=== PATIENT | male | born 1940 | race Caucasian/White ===

== ENCOUNTER 2018-03-04 11:30 | Outpatient (RCR) | payer MEDICARE, OTHER, SELFPAY ==
[2018-02-25 10:48] VITALS: BP 150/80; PULSE 96; RESP 18; TEMP 36.1
--- NOTE | 2018-02-25 11:33 | WC ---
+4 pitting pedal edema , #1 wound foul smelling wound noted
--- NOTE | 2018-02-25 13:03 | RAD_ITS ---
STUDY: X-RAY - LEFT KNEE REASON FOR EXAM: Male, 77 years old. Left lower leg ulcer. Ostial myelitis? TECHNIQUE: 4 view(s) of the knee. COMPARISON: Tibia and fibula same date. FINDINGS: Calcification of the menisci bilaterally may reflect underlying CPPD/pseudogout. There are no significant degenerative features of the medial or lateral or patellofemoral compartment otherwise. There is generalized osteopenia. No apparent knee joint effusion. There is superficial soft tissue edema in the subcutaneous fat surrounding the knee, in the distal thigh and in the proximal lower leg. RAD/Knee 4 or More Views IMPRESSION: Prominent superficial soft tissue edema. No significant osteoarthritic degenerative features of the bones. 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 Electronically Signed: Gregorio Barrera, at 18:52 EDT Tel , Service support ,
--- NOTE | 2018-02-25 13:04 | RAD_ITS ---
STUDY: X-RAY - LEFT TIBIA AND FIBULA REASON FOR EXAM: Male, 77 years old. Left lower leg ulcer. Ostial myelitis? TECHNIQUE: 4 view(s) of the tibia and fibula were obtained. COMPARISON: Knee and ankle same date FINDINGS: Osteopenia. No destructive features of the tibia or fibula. Diffuse superficial soft tissue swelling of the lower leg. No deep soft tissue gas. RAD/Tibia & Fibula 2 Views IMPRESSION: Diffuse superficial soft tissue edema. No acute underlying osseous abnormality. Electronically Signed: Gregorio Barrera, at 18:53 EDT Tel , Service support ,
--- NOTE | 2018-02-25 13:05 | RAD_ITS ---
STUDY: X-RAY - LEFT ANKLE REASON FOR EXAM: Male, 77 years old. Left lower leg ulcer. Osteomyelitis? TECHNIQUE: 3 view(s) of the ankle. COMPARISON: Tibia and fibula same date. Knee same date. FINDINGS: Generalized osteopenia without destructive features of the bone. No fracture or dislocation. No significant arthritic changes of the ankle or proximal foot. Small plantar calcaneal spur. Severe soft tissue swelling of the lower leg, around the ankle and proximal foot. No deep soft tissue gas. RAD/Ankle min 3 Views IMPRESSION: Severe soft tissue swelling. No acute underlying osseous abnormality. Electronically Signed: Gregorio Barrera, at 18:51 EDT Tel , Service support ,
[2018-02-25 13:24] LABS: Absolute Lymphocyte Count 2.59 X10^3/ul (0.83-4.51); Absolute Neutrophil Count 4.6 X10^3/uL (2.0-7.7); Basophil# 0.05 X10^3/uL; Basophil% 0.6 % (0-1); Eosinophil# 0.15 X10^3/uL; Eosinophils% 1.8 % (0-5); Hematocrit 47.4 % (40-54); Lymphocyte # 2.59 X10^3/ul (4.0); Lymphocyte % 31.9 % (19-41); Mean Corp Hgb Conc 31.6 g/gl (32-36); Mean Corpuscular Hgb 29.8 pg (27.0-32.0); Mean Corpuscular Volume 94.2 fL (80-94); Monocyte# 0.72 X10^3/uL; Monocyte% 8.9 % (0-10); Neutrophil % 56.6 % (47-70); POSITIVE COUNT NO; POSITIVE DIFFERENTIAL NO; POSITIVE MORPHOLOGY NO; Platelet Count 134 K/mm3 (150-450); RBC Distribution Width CV 16.2 % (11.6-14.6); RBC Distribution Width SD 55.8 fl (35.1-43.9); Red Blood Count 5.03 M/mm3 (4.6-6.2); White Blood Count 8.1 K/mm3 (4.4-11.0)
[2018-02-25 13:58] LABS: ALB/GLOB Ratio 0.7 RATIO (0.9-2.4); AST(SGOT) 29 U/L (15-37); Alanine Aminotransfer ALT/SGPT 21 U/L (16-61); Albumin, Serum 2.9 g/dL (3.2-5.0); Alkaline Phosphatase 131 U/L (45-117); Anion Gap 3 (5-15); BUN 17 mg/dL (7-18); Calcium,Total 8.7 mg/dL (8.5-10.1); Chloride 106 mmol/L (98-107); Creatinine, Serum 1.06 mg/dL (0.70-1.30); EST Glomerular Filtration Rate 72 mL/min (>60); Est Glom Filt Rate - Afr Amer 87 mL/min (>60); Glucose 100 mg/dL (74-106); Potassium 4.4 mmol/L (3.5-5.1); Prealbumin 16.3 mg/dL (20.0-40.0); Protein, Total 6.9 g/dL (6.4-8.2); Sodium Level 141 mmol/L (136-145)
--- NOTE | 2018-02-25 17:12 | PCM.WC.HP ---
(1) Ulcer of left lower extremity with fat layer exposed Status: Acute Current Visit: Yes Code(s): L97.922 - Non-pressure chronic ulcer of unspecified part of left lower leg with fat layer exposed (2) Ulcer of right lower extremity with fat layer exposed Status: Acute Current Visit: Yes Code(s): L97.912 - Non-pressure chronic ulcer of unspecified part of right lower leg with fat layer exposed (3) Chronic venous insufficiency Status: Acute Current Visit: Yes Code(s): I87.2 - Venous insufficiency (chronic) (peripheral) (4) Non-healing ulcer Status: Acute Current Visit: Yes Code(s): L98.499 - Non-pressure chronic ulcer of skin of other sites with unspecified severity History of Present Illness Date of Service: 02/25/18 Chief Complaint: Bilateral lower extremity ulcers. History of Wound: Mr. Diaz presents here with an at least 8 month history of bilateral lower extremity ulcers. He is here with his son and they are unsure of the exact onset but believe it must have been presnt for at least 8 months.They are also not sure of the precipitating factor. He lives with his who is largely incapapcitated and is helped by Home health. He has not had any significant care to his ulcers. He denies any known history of DM or PAD. He follows up with his PCP by whom he was referred here. He feels wells otherwise and denies chills, fever, significant discharge from the wound, nausea, vomiting or any change inhis bowel habit. Past Medical History Allergies/Adverse Reactions: Allergies No Known Allergies Allergy (Verified 02/25/18 10:09) Home Medications: Ambulatory Orders Medication Instructions Recorded Furosemide [Lasix] 40 mg PO DAILY 02/25/18 Gluc/Mino-MSM#1/C/Slick/Jose/Bor 1 each PO DAILY 02/25/18 [Glucosamine-Chondroitin Caplet] Lisinopril 20 mg PO DAILY 02/25/18 Multivitamin [Multiple Vitamins] 1 each PO DAILY 02/25/18 Nebivolol HCl [Bystolic] 10 mg PO DAILY 02/25/18 Smoking Status: Light Smoker (<10/day) Review of Systems Constitutional: Denies: Anorexia, Chills, Fever Eyes: Denies: Pain HEENT: Denies: Difficulty Swallowing, Head Aches Cardiovascular: Denies: Chest Pain, Chest Tightness Respiratory: Denies: Cough, Hemoptysis Gastrointestinal: Denies: Abdominal Pain, Hematemesis, Vomiting Skin: Denies: Jaundice Psychiatric: Denies: Anxiety - Physical Exam Vital Signs Temp Pulse Resp BP 97 F L 96 18 150/80 H 02/25/18 10:48 02/25/18 10:48 02/25/18 10:48 02/25/18 10:48 General: Alert, Oriented x3, Cooperative, No apparent distress HEENT: Atraumatic, Normocephalic Oral: Moist Mucosa Neck: Supple Lungs: Normal air movement Cardiovascular: Regular rate, Regular Rhythm, Normal S1, Normal S2 Abdomen: Non Tender Extremities: No cyanosis, Edema Skin: Ulcer/ Wound Wound Measurements and Assessment WC - Nurse 1 - General Ulcer Measurement Start: 02/25/18 09:22 Freq: Status: Active Protocol: Activity Type Activity Date Activity User E-Sign Co-Sign Detail Recorded Client Recorded Date Recorded By Document 02/25/18 10:48 [id number] 02/25/18 11:02 RB 02/25/18 10:48 Wound Center Nurse 1 [Ulcer Assessment] #3 RIGHT NUGENT -Combined with other wound No -Current Size (cm) - Length 4.4 -Current Size (cm) - Width 0.9 -Current Size (cm) - Depth 0.1 -Total Square Cm 3.96 -Photo Taken Yes -Tunneling No -Undermining/Tunneling No -Circular Undermining No -Classification - Thickness Full Thickness without Exposed Support Structure -Exudate Amt Small (1-33%) -Exudate Type Serosanguineous -Wound Margin Distinct, Outline Attached -Granulation Amt Medium (34-66%) -Granulation Quality [place] -Slough/Fibrin Yes -Necrosis Amt Medium (34-66%) -Necrotic Tissue Type Adherent Slough -Structure Exposed N/A -Texture (Lydia-wound Skin Appearance) Assessed -Moisture (Lydia-wound Skin Appearance Assessed ) -Color (Lydia-wound Skin Appearance) Assessed -Temperature (Lydia-wound Skin No Abnormality Appearance) (Pt Warm) -Tenderness on Palpation (Lydia-wound No Skin Appearance) -Ulcer Cleansing Wound Cleanser -Foul Odor after Cleansing No -Anesthetic Used 5% Lidocaine Gel #2 POSTERIOR RLE- CALF -Combined with other wound No -Current Size (cm) - Length 4 -Current Size (cm) - Width 2.6 -Current Size (cm) - Depth 0.1 -Total Square Cm 10.4 -Photo Taken Yes -Tunneling No -Undermining/Tunneling No -Circular Undermining No -Classification - Thickness Full Thickness without Exposed Support Structure -Exudate Amt Medium (34-66%) -Exudate Type Serosanguineous -Wound Margin Distinct, Outline Attached -Granulation Amt Medium (34-66%) -Granulation Quality [place] -Slough/Fibrin Yes -Necrosis Amt Medium (34-66%) -Necrotic Tissue Type Adherent Slough -Structure Exposed N/A -Texture (Lydia-wound Skin Appearance) Assessed -Moisture (Lydia-wound Skin Appearance Maceration ) -Color (Lydia-wound Skin Appearance) Assessed -Temperature (Lydia-wound Skin No Abnormality Appearance) (Pt Warm) -Tenderness on Palpation (Lydia-wound No Skin Appearance) -Ulcer Cleansing Wound Cleanser -Foul Odor after Cleansing No -Anesthetic Used 5% Lidocaine Gel #1 POSTERIOR LLE -Combined with other wound No -Current Size (cm) - Length 8.1 -Current Size (cm) - Width 3.7 -Current Size (cm) - Depth 0.2 -Total Square Cm 29.97 -Photo Taken Yes -Tunneling No -Undermining/Tunneling No -Circular Undermining No -Classification - Thickness Full Thickness without Exposed Support Structure -Exudate Amt Large (67-100%) -Exudate Type Serosanguineous -Wound Margin Distinct, Outline Attached -Granulation Amt Small (1-33%) -Granulation Quality [place] -Slough/Fibrin Yes -Necrosis Amt Large (67-100%) -Necrotic Tissue Type Adherent Slough -Structure Exposed N/A -Texture (Lydia-wound Skin Appearance) Assessed -Moisture (Lydia-wound Skin Appearance Assessed ) Maceration -Color (Lydia-wound Skin Appearance) Assessed -Temperature (Lydia-wound Skin No Abnormality Appearance) (Pt Warm) -Tenderness on Palpation (Lydia-wound No Skin Appearance) -Ulcer Cleansing Wound Cleanser -Foul Odor after Cleansing No -Anesthetic Used 5% Lidocaine Gel [Edema Assessment] -Lower Limb Edema Present Yes -Right Calf (cm) 42 -Right Ankle (cm) 26.5 -Left Calf (cm) 43.4 -Left Ankle (cm) 31.5 WC - Nurse 2 - General Ulcer CM Notes Start: 02/25/18 09:22 Freq: Status: Active Protocol: Activity Type Activity Date Activity User E-Sign Co-Sign Detail Recorded Client Recorded Date Recorded By Document 02/25/18 11:33 DV [id number] 02/25/18 11:49 DV 02/25/18 11:33 Wound Center Nurse 2 [Procedure/Treatment] #3 RIGHT NUGENT -Time 11:41 -Correct Patient Yes -Correct Side, Site, Position Yes -Correct Procedure Yes -Procedure Performed Yes -Type of Procedure Debridement -Clinical Debridement Subcutaneous -Post Debridement Size (cm) - Length 4.5 -Post Debridement Size (cm) - Width 1.2 -Post Debridement Size (cm) - Depth 0.3 -Total Square Cm 5.40 -Wound/Ulcer Outcome Not Healed -Ulcer Cleansing Rinsed/ Irrigated with Saline -Foul Odor after Cleansing No -Bioengineered Tissue No -Bleeding Controlled with NA -Treatment Response Procedure Tolerated Well #2 POSTERIOR RLE- CALF -Time 11:43 -Correct Patient Yes -Correct Side, Site, Position Yes -Correct Procedure Yes -Procedure Performed Yes -Type of Procedure Debridement -Clinical Debridement Subcutaneous -Post Debridement Size (cm) - Length 4.5 -Post Debridement Size (cm) - Width 3.0 -Post Debridement Size (cm) - Depth 0.2 -Total Square Cm 13.50 -Wound/Ulcer Outcome Not Healed -Ulcer Cleansing Rinsed/ Irrigated with Saline -Foul Odor after Cleansing No -Bioengineered Tissue No -Bleeding Controlled with Pressure -Treatment Response Procedure Tolerated Well #1 POSTERIOR LLE -Time 11:44 -Correct Patient Yes -Correct Side, Site, Position Yes -Correct Procedure Yes -Procedure Performed Yes -Type of Procedure Debridement -Clinical Debridement Subcutaneous -Post Debridement Size (cm) - Length 8.8 -Post Debridement Size (cm) - Width 3.3 -Post Debridement Size (cm) - Depth 0.4 -Total Square Cm 29.04 -Wound/Ulcer Outcome Not Healed -Ulcer Cleansing Rinsed/ Irrigated with Saline -Foul Odor after Cleansing No -Bioengineered Tissue No -Bleeding Controlled with Pressure -Treatment Response Procedure Tolerated Well [See Physician Procedure note for Specifics] Pain Scale: 0-10 Numeric [Pain] -Is Patient Pain Free? Yes Musculoskeletal: No Muscle Wasting Neurological: Neuro grossly intact Psych/Mental Status: Normal Affect Debridement Note Post-Debridement Measurements/Treatment WC - Nurse 2 - General Ulcer CM Notes Start: 02/25/18 09:22 Freq: Status: Active Protocol: Activity Type Activity Date Activity User E-Sign Co-Sign Detail Recorded Client Recorded Date Recorded By Document 02/25/18 11:33 DV [id number] 02/25/18 11:49 DV 02/25/18 11:33 Wound Center Nurse 2 #3 RIGHT NUGENT -Time 11:41 -Correct Patient Yes -Correct Side, Site, Position Yes -Correct Procedure Yes -Procedure Performed Yes -Type of Procedure Debridement -Clinical Debridement Subcutaneous -Post Debridement Size (cm) - Length 4.5 -Post Debridement Size (cm) - Width 1.2 -Post Debridement Size (cm) - Depth 0.3 -Total Square Cm 5.40 -Wound/Ulcer Outcome Not Healed -Ulcer Cleansing Rinsed/ Irrigated with Saline -Foul Odor after Cleansing No -Bioengineered Tissue No -Bleeding Controlled with NA -Treatment Response Procedure Tolerated Well #2 POSTERIOR RLE- CALF -Time 11:43 -Correct Patient Yes -Correct Side, Site, Position Yes -Correct Procedure Yes -Procedure Performed Yes -Type of Procedure Debridement -Clinical Debridement Subcutaneous -Post Debridement Size (cm) - Length 4.5 -Post Debridement Size (cm) - Width 3.0 -Post Debridement Size (cm) - Depth 0.2 -Total Square Cm 13.50 -Wound/Ulcer Outcome Not Healed -Ulcer Cleansing Rinsed/ Irrigated with Saline -Foul Odor after Cleansing No -Bioengineered Tissue No -Bleeding Controlled with Pressure -Treatment Response Procedure Tolerated Well #1 POSTERIOR LLE -Time 11:44 -Correct Patient Yes -Correct Side, Site, Position Yes -Correct Procedure Yes -Procedure Performed Yes -Type of Procedure Debridement -Clinical Debridement Subcutaneous -Post Debridement Size (cm) - Length 8.8 -Post Debridement Size (cm) - Width 3.3 -Post Debridement Size (cm) - Depth 0.4 -Total Square Cm 29.04 -Wound/Ulcer Outcome Not Healed -Ulcer Cleansing Rinsed/ Irrigated with Saline -Foul Odor after Cleansing No -Bioengineered Tissue No -Bleeding Controlled with Pressure -Treatment Response Procedure Tolerated Well Pain Scale: 0-10 Numeric Is Patient Pain Free? Yes Wound debrided: Left Lower extremity ( Posterior ) Wound Grade/Stage: Stage III Type of Debridement: Excisional debridement Anesthesia Used: 5% Lidocaine Gel Depth: Down to and including healthy tissue, in the subcutaneous layer Percentage of wound debrided: 100 Instrument Used: 5mm curette Tissue Removed: SLough, Fibrin and Devitalized tissue Severity: Fat Layer Exposed Amount of bleeding with debridement: Mild Bleeding Controlled with: Pressure Patient tolerated procedure well - Additional Wound Wound debrided: Right lower extremity ( Posterior ) Cluster Wound Grade/Stage: Stage II Type of Debridement: Excisional debridement Anesthesia Used: 5% Lidocaine Gel Depth: Down to and including healthy tissue, in the subcutaneous layer Percentage of wound debrided: 100 Instrument Used: 5mm curette Tissue Removed: Slough and devitalized tissue Severity: Fat Layer Exposed Amount of bleeding with debridement: Mild Bleeding Controlled with: Pressure Patient tolerated procedure: Patient tolerated procedure well - Additional Wound Wound debrided: Right nugent ulcer Wound Grade/Stage: Stage II Type of Debridement: Excisional debridement Anesthesia Used: 5% Lidocaine Gel Depth: Down to and including healthy tissue, in the subcutaneous layer Percentage of wound debrided: 100 Instrument Used: 5mm curette Tissue Removed: Slough and devitalized tissue Severity: Fat Layer Exposed Amount of bleeding with debridement: Mild Bleeding Controlled with: Pressure Patient tolerated procedure: Patient tolerated procedure well Assessment/Plan Active Problems Ulcer of left lower extremity with fat layer exposed (Acute) Ulcer of right lower extremity with fat layer exposed (Acute) Chronic venous insufficiency (Acute) Non-healing ulcer (Acute) Assessment: Bilateral lower extremity ulcers with fat layer exposed. Chronic venous insufficiency. Chronic bilateral non healing wound. Congestive heart failure. Debility. Plan: Mr. Diaz presents here with bilateral chronic non healing wound. Largest ulcer on the posterior left lower extremity with very significant slough burden. No surrounding cellulitis appreciated. Debridement done as documented above. Procedure was well tolerated. Xrays, cultures and blood work ordererd including CBC, CMP, Prealbumin and A1C. Apply santyl daily to moistened beds of to left lower extremity ulcer and espinoza to right lower extremity ulcers. Single layer tubi it integration architect for edema management. Elevate lower extremity when sitted and in bed. Due to debility and lack of good support system, patient will benefit from Home health. Increased protein intake and protein supplements recommeneded. Follow up in 1 week. This note was generated with [employer] software. It may contain incorrect words, spelling, and punctuation that were not noted in checking the note before signing.
--- NOTE | 2018-02-25 17:19 | HP.PCM_ITS ---
(1) Ulcer of left lower extremity with fat layer exposed Status: Acute Current Visit: Yes Code(s): L97.922 - Non-pressure chronic ulcer of unspecified part of left lower leg with fat layer exposed (2) Ulcer of right lower extremity with fat layer exposed Status: Acute Current Visit: Yes Code(s): L97.912 - Non-pressure chronic ulcer of unspecified part of right lower leg with fat layer exposed (3) Chronic venous insufficiency Status: Acute Current Visit: Yes Code(s): I87.2 - Venous insufficiency ( chronic) (peripheral) (4) Non-healing ulcer Status: Acute Current Visit: Yes Code(s): L98.499 - Non-pressure chronic ulcer of skin of other sites with unspecified severity History of Present Illness Date of Service: 02/25/18 Chief Complaint: Bilateral lower extremity ulcers. History of Wound: Mr. Diaz presents here with an at least 8 month history of bilateral lower extremity ulcers. He is here with his son and they are unsure of the exact onset but believe it must have been presnt for at least 8 months.They are also not sure of the precipitating factor. He lives with his who is largely incapapcitated and is helped by Home health. He has not had any significant care to his ulcers. He denies any known history of DM or PAD. He follows up with his PCP by whom he was referred here. He feels wells otherwise and denies chills, fever, significant discharge from the wound, nausea , vomiting or any change inhis bowel habit. Past Medical History Allergies/Adverse Reactions: Allergies No Known Allergies Allergy (Verified 02/25/18 10:09) Home Medications: Ambulatory Orders Medication Instructions Recorded Furosemide [Lasix] 40 mg PO DAILY 02/25/18 Gluc/Mino-MSM#1/C/Slick/Jose/Bor 1 each PO DAILY 02/25/18 [Glucosamine-Chondroitin Caplet] Lisinopril 20 mg PO DAILY 02/25/18 Multivitamin [Multiple Vitamins] 1 each PO DAILY 02/25/18 Nebivolol HCl [Bystolic] 10 mg PO DAILY 02/25/18 Smoking Status: Light Smoker (<10/day) Review of Systems Constitutional: Denies: Anorexia, Chills, Fever Eyes: Denies: Pain HEENT: Denies: Difficulty Swallowing, Head Aches Cardiovascular: Denies: Chest Pain, Chest Tightness Respiratory: Denies: Cough, Hemoptysis Gastrointestinal: Denies: Abdominal Pain, Hematemesis, Vomiting Skin: Denies: Jaundice Psychiatric: Denies: Anxiety - Physical Exam Vital Signs Temp Pulse Resp BP 97 F L 96 18 150/80 H 02/25/18 10:48 02/25/18 10:48 02/25/18 10:48 02/25/18 10:48 General: Alert, Oriented x3, Cooperative, No apparent distress HEENT: Atraumatic, Normocephalic Oral: Moist Mucosa Neck: Supple Lungs: Normal air movement Cardiovascular: Regular rate, Regular Rhythm, Normal S1, Normal S2 Abdomen: Non Tender Extremities: No cyanosis, Edema Skin: Ulcer/ Wound Wound Measurements and Assessment WC - Nurse 1 - General Ulcer Measurement Start: 02/25/18 09:22 Freq: Status: Active Protocol: Activity Type Activity Date Activity User E-Sign Co-Sign Detail Recorded Client Recorded Date Recorded By Document 02/25/18 10:48 [id number] 02/25/18 11:02 RB 02/25/18 10:48 Wound Center Nurse 1 [Ulcer Assessment] #3 RIGHT NUGENT -Combined with other wound No -Current Size (cm) - Length 4.4 -Current Size (cm) - Width 0.9 -Current Size (cm) - Depth 0.1 -Total Square Cm 3.96 -Photo Taken Yes -Tunneling No -Undermining/Tunneling No -Circular Undermining No -Classification - Thickness Full Thickness without Exposed Support Structure -Exudate Amt Small (1-33%) -Exudate Type Serosanguineous -Wound Margin Distinct, Outline Attached -Granulation Amt Medium (34-66%) -Granulation Quality [place] -Slough/Fibrin Yes -Necrosis Amt Medium (34-66%) -Necrotic Tissue Type Adherent Slough -Structure Exposed N/A -Texture (Lydia-wound Skin Appearance) Assessed -Moisture (Lydia-wound Skin Appearance Assessed ) -Color (Lydia-wound Skin Appearance) Assessed -Temperature (Lydia-wound Skin No Abnormality Appearance) (Pt Warm) -Tenderness on Palpation (Lydia-wound No Skin Appearance) -Ulcer Cleansing Wound Cleanser -Foul Odor after Cleansing No -Anesthetic Used 5% Lidocaine Gel #2 POSTERIOR RLE- CALF -Combined with other wound No -Current Size (cm) - Length 4 -Current Size (cm) - Width 2.6 -Current Size (cm) - Depth 0.1 -Total Square Cm 10.4 -Photo Taken Yes -Tunneling No -Undermining/Tunneling No -Circular Undermining No -Classification - Thickness Full Thickness without Exposed Support Structure -Exudate Amt Medium (34-66%) -Exudate Type Serosanguineous -Wound Margin Distinct, Outline Attached -Granulation Amt Medium (34-66%) -Granulation Quality [place] -Slough/Fibrin Yes -Necrosis Amt Medium (34-66%) -Necrotic Tissue Type Adherent Slough -Structure Exposed N/A -Texture (Lydia-wound Skin Appearance) Assessed -Moisture (Lydia-wound Skin Appearance Maceration ) -Color (Lydia-wound Skin Appearance) Assessed -Temperature (Lydia-wound Skin No Abnormality Appearance) (Pt Warm) -Tenderness on Palpation (Lydia-wound No Skin Appearance) -Ulcer Cleansing Wound Cleanser -Foul Odor after Cleansing No -Anesthetic Used 5% Lidocaine Gel #1 POSTERIOR LLE -Combined with other wound No -Current Size (cm) - Length 8.1 -Current Size (cm) - Width 3.7 -Current Size (cm) - Depth 0.2 -Total Square Cm 29.97 -Photo Taken Yes -Tunneling No -Undermining/Tunneling No -Circular Undermining No -Classification - Thickness Full Thickness without Exposed Support Structure -Exudate Amt Large (67-100%) -Exudate Type Serosanguineous -Wound Margin Distinct, Outline Attached -Granulation Amt Small (1-33%) -Granulation Quality [place] -Slough/Fibrin Yes -Necrosis Amt Large (67-100%) -Necrotic Tissue Type Adherent Slough -Structure Exposed N/A -Texture (Lydia-wound Skin Appearance) Assessed -Moisture (Lydia-wound Skin Appearance Assessed ) Maceration -Color (Lydia-wound Skin Appearance) Assessed -Temperature (Lydia-wound Skin No Abnormality Appearance) (Pt Warm) -Tenderness on Palpation (Lydia-wound No Skin Appearance) -Ulcer Cleansing Wound Cleanser -Foul Odor after Cleansing No -Anesthetic Used 5% Lidocaine Gel [Edema Assessment] -Lower Limb Edema Present Yes -Right Calf (cm) 42 -Right Ankle (cm) 26.5 -Left Calf (cm) 43.4 -Left Ankle (cm) 31.5 WC - Nurse 2 - General Ulcer CM Notes Start: 02/25/18 09:22 Freq: Status: Active Protocol: Activity Type Activity Date Activity User E-Sign Co-Sign Detail Recorded Client Recorded Date Recorded By Document 02/25/18 11:33 DV [id number] 02/25/18 11:49 DV 02/25/18 11:33 Wound Center Nurse 2 [Procedure/Treatment] #3 RIGHT NUGENT -Time 11:41 -Correct Patient Yes -Correct Side, Site, Position Yes -Correct Procedure Yes -Procedure Performed Yes -Type of Procedure Debridement -Clinical Debridement Subcutaneous -Post Debridement Size (cm) - Length 4.5 -Post Debridement Size (cm) - Width 1.2 -Post Debridement Size (cm) - Depth 0.3 -Total Square Cm 5.40 -Wound/Ulcer Outcome Not Healed -Ulcer Cleansing Rinsed/ Irrigated with Saline -Foul Odor after Cleansing No -Bioengineered Tissue No -Bleeding Controlled with NA -Treatment Response Procedure Tolerated Well #2 POSTERIOR RLE- CALF -Time 11:43 -Correct Patient Yes -Correct Side, Site, Position Yes -Correct Procedure Yes -Procedure Performed Yes -Type of Procedure Debridement -Clinical Debridement Subcutaneous -Post Debridement Size (cm) - Length 4.5 -Post Debridement Size (cm) - Width 3.0 -Post Debridement Size (cm) - Depth 0.2 -Total Square Cm 13.50 -Wound/Ulcer Outcome Not Healed -Ulcer Cleansing Rinsed/ Irrigated with Saline -Foul Odor after Cleansing No -Bioengineered Tissue No -Bleeding Controlled with Pressure -Treatment Response Procedure Tolerated Well #1 POSTERIOR LLE -Time 11:44 -Correct Patient Yes -Correct Side, Site, Position Yes -Correct Procedure Yes -Procedure Performed Yes -Type of Procedure Debridement -Clinical Debridement Subcutaneous -Post Debridement Size (cm) - Length 8.8 -Post Debridement Size (cm) - Width 3.3 -Post Debridement Size (cm) - Depth 0.4 -Total Square Cm 29.04 -Wound/Ulcer Outcome Not Healed -Ulcer Cleansing Rinsed/ Irrigated with Saline -Foul Odor after Cleansing No -Bioengineered Tissue No -Bleeding Controlled with Pressure -Treatment Response Procedure Tolerated Well [See Physician Procedure note for Specifics] Pain Scale: 0-10 Numeric [Pain] -Is Patient Pain Free? Yes Musculoskeletal: No Muscle Wasting Neurological: Neuro grossly intact Psych/Mental Status: Normal Affect Debridement Note Post-Debridement Measurements/Treatment WC - Nurse 2 - General Ulcer CM Notes Start: 02/25/18 09:22 Freq: Status: Active Protocol: Activity Type Activity Date Activity User E-Sign Co-Sign Detail Recorded Client Recorded Date Recorded By Document 02/25/18 11:33 DV [id number] 02/25/18 11:49 DV 02/25/18 11:33 Wound Center Nurse 2 #3 RIGHT NUGENT -Time 11:41 -Correct Patient Yes -Correct Side, Site, Position Yes -Correct Procedure Yes -Procedure Performed Yes -Type of Procedure Debridement -Clinical Debridement Subcutaneous -Post Debridement Size (cm) - Length 4.5 -Post Debridement Size (cm) - Width 1.2 -Post Debridement Size (cm) - Depth 0.3 -Total Square Cm 5.40 -Wound/Ulcer Outcome Not Healed -Ulcer Cleansing Rinsed/ Irrigated with Saline -Foul Odor after Cleansing No -Bioengineered Tissue No -Bleeding Controlled with NA -Treatment Response Procedure Tolerated Well #2 POSTERIOR RLE- CALF -Time 11:43 -Correct Patient Yes -Correct Side, Site, Position Yes -Correct Procedure Yes -Procedure Performed Yes -Type of Procedure Debridement -Clinical Debridement Subcutaneous -Post Debridement Size (cm) - Length 4.5 -Post Debridement Size (cm) - Width 3.0 -Post Debridement Size (cm) - Depth 0.2 -Total Square Cm 13.50 -Wound/Ulcer Outcome Not Healed -Ulcer Cleansing Rinsed/ Irrigated with Saline -Foul Odor after Cleansing No -Bioengineered Tissue No -Bleeding Controlled with Pressure -Treatment Response Procedure Tolerated Well #1 POSTERIOR LLE -Time 11:44 -Correct Patient Yes -Correct Side, Site, Position Yes -Correct Procedure Yes -Procedure Performed Yes -Type of Procedure Debridement -Clinical Debridement Subcutaneous -Post Debridement Size (cm) - Length 8.8 -Post Debridement Size (cm) - Width 3.3 -Post Debridement Size (cm) - Depth 0.4 -Total Square Cm 29.04 -Wound/Ulcer Outcome Not Healed -Ulcer Cleansing Rinsed/ Irrigated with Saline -Foul Odor after Cleansing No -Bioengineered Tissue No -Bleeding Controlled with Pressure -Treatment Response Procedure Tolerated Well Pain Scale: 0-10 Numeric Is Patient Pain Free? Yes Wound debrided: Left Lower extremity ( Posterior ) Wound Grade/Stage: Stage III Type of Debridement: Excisional debridement Anesthesia Used: 5% Lidocaine Gel Depth: Down to and including healthy tissue, in the subcutaneous layer Percentage of wound debrided: 100 Instrument Used: 5mm curette Tissue Removed: SLough, Fibrin and Devitalized tissue Severity: Fat Layer Exposed Amount of bleeding with debridement: Mild Bleeding Controlled with: Pressure Patient tolerated procedure well - Additional Wound Wound debrided: Right lower extremity ( Posterior ) Cluster Wound Grade/Stage: Stage II Type of Debridement: Excisional debridement Anesthesia Used: 5% Lidocaine Gel Depth: Down to and including healthy tissue, in the subcutaneous layer Percentage of wound debrided: 100 Instrument Used: 5mm curette Tissue Removed: Slough and devitalized tissue Severity: Fat Layer Exposed Amount of bleeding with debridement: Mild Bleeding Controlled with: Pressure Patient tolerated procedure: Patient tolerated procedure well - Additional Wound Wound debrided: Right nugent ulcer Wound Grade/Stage: Stage II Type of Debridement: Excisional debridement Anesthesia Used: 5% Lidocaine Gel Depth: Down to and including healthy tissue, in the subcutaneous layer Percentage of wound debrided: 100 Instrument Used: 5mm curette Tissue Removed: Slough and devitalized tissue Severity: Fat Layer Exposed Amount of bleeding with debridement: Mild Bleeding Controlled with: Pressure Patient tolerated procedure: Patient tolerated procedure well Assessment/Plan Active Problems Ulcer of left lower extremity with fat layer exposed (Acute) Ulcer of right lower extremity with fat layer exposed (Acute) Chronic venous insufficiency (Acute) Non-healing ulcer (Acute) Assessment: Bilateral lower extremity ulcers with fat layer exposed. Chronic venous insufficiency. Chronic bilateral non healing wound. Congestive heart failure. Debility. Plan: Mr. Diaz presents here with bilateral chronic non healing wound. Largest ulcer on the posterior left lower extremity with very significant slough burden. No surrounding cellulitis appreciated. Debridement done as documented above. Procedure was well tolerated. Xrays, cultures and blood work ordererd including CBC, CMP, Prealbumin and A1C. Apply santyl daily to moistened beds of to left lower extremity ulcer and espinoza to right lower extremity ulcers. Single layer tubi senior it recruiter for edema management. Elevate lower extremity when sitted and in bed. Due to debility and lack of good support system, patient will benefit from Home health. Increased protein intake and protein supplements recommeneded. Follow up in 1 week. This note was generated with [employer] software. It may contain incorrect words, spelling, and punctuation that were not noted in checking the note before signing.
[2018-03-04 12:07] VITALS: BP 148/90; PULSE 70; RESP 18; TEMP 36.5
--- NOTE | 2018-03-04 19:02 | PCM.WC.PN ---
(1) Ulcer of left lower extremity with fat layer exposed Status: Acute Current Visit: Yes Code(s): L97.922 - Non-pressure chronic ulcer of unspecified part of left lower leg with fat layer exposed (2) Ulcer of right lower extremity with fat layer exposed Status: Acute Current Visit: Yes Code(s): L97.912 - Non-pressure chronic ulcer of unspecified part of right lower leg with fat layer exposed (3) Chronic venous insufficiency Status: Acute Current Visit: Yes Code(s): I87.2 - Venous insufficiency (chronic) (peripheral) (4) Non-healing ulcer Status: Acute Current Visit: Yes Code(s): L98.499 - Non-pressure chronic ulcer of skin of other sites with unspecified severity Type of Wound Date of Service: 03/04/18 Chief Complaint: Bilateral lower extremity ulcers. History of Wound: Mr. Diaz presents here with an at least 8 month history of bilateral lower extremity ulcers. He is here with his son and they are unsure of the exact onset but believe it must have been presnt for at least 8 months.They are also not sure of the precipitating factor. He lives with his who is largely incapapcitated and is helped by Home health. He has not had any significant care to his ulcers. He denies any known history of DM or PAD. He follows up with his PCP by whom he was referred here. He feels wells otherwise and denies chills, fever, significant discharge from the wound, nausea, vomiting or any change inhis bowel habit. Progress of Wound: Stable. No new complaints at this time. Could not afford Santyl and so has had nothing applied to his wounds. - Physical Exam Vital Signs Temp Pulse Resp BP 97.7 F L 70 18 148/90 H 03/04/18 12:07 03/04/18 12:07 03/04/18 12:07 03/04/18 12:07 General: Alert, Oriented x3, Cooperative, No apparent distress HEENT: Atraumatic, Normocephalic Oral: Moist Mucosa Neck: Supple Lungs: Normal air movement Abdomen: Non Tender Extremities: No cyanosis Skin: Ulcer/ Wound Wound Measurements and Assessment WC - Nurse 1 - General Ulcer Measurement Start: 02/25/18 09:22 Freq: Status: Active Protocol: Activity Type Activity Date Activity User E-Sign Co-Sign Detail Recorded Client Recorded Date Recorded By Document 03/04/18 12:07 [facility] [id number] 03/04/18 12:27 [facility] 03/04/18 12:07 Wound Center Nurse 1 [Ulcer Assessment] #4- LT NUGENT -Combined with other wound No -Current Size (cm) - Length 1.8 -Current Size (cm) - Width 1.1 -Current Size (cm) - Depth 0.1 -Total Square Cm 1.98 -Date of Last Picture (Recall this 03/04/18 field) -Photo Taken Yes -Epithelialization None Present -Tunneling No -Undermining/Tunneling No -Circular Undermining No -Exudate Amt Small (1-33%) -Exudate Type Serous -Wound Margin Distinct, Outline Attached -Granulation Amt Large (67-100%) -Granulation Quality Red -Slough/Fibrin No -Necrosis Amt None Present (0 %) -Structure Exposed None/Limited to Skin Breakdown -Texture (Lydia-wound Skin Appearance) Scarring -Moisture (Lydia-wound Skin Appearance Maceration ) -Color (Lydia-wound Skin Appearance) Palor -Temperature (Lydia-wound Skin No Abnormality Appearance) (Pt Warm) -Tenderness on Palpation (Lydia-wound No Skin Appearance) -Ulcer Cleansing Wound Cleanser -Foul Odor after Cleansing No -Anesthetic Used 4% Lidocaine Solution #3 RIGHT NUGENT -Combined with other wound No -Current Size (cm) - Length 4 -Current Size (cm) - Width 0.6 -Current Size (cm) - Depth 0.1 -Total Square Cm 2.4 -Photo Taken No -Epithelialization None Present -Tunneling No -Undermining/Tunneling No -Circular Undermining No -Exudate Amt Small (1-33%) -Exudate Type Serosanguineous -Wound Margin Distinct, Outline Attached -Granulation Amt Small (1-33%) -Granulation Quality Red -Slough/Fibrin Yes -Necrosis Amt Medium (34-66%) -Necrotic Tissue Type Adherent Slough -Structure Exposed None/Limited to Skin Breakdown -Texture (Lydia-wound Skin Appearance) Scarring -Moisture (Lydia-wound Skin Appearance Dry/Scaly ) -Color (Lydia-wound Skin Appearance) Hemosiderin Staining -Temperature (Lydia-wound Skin No Abnormality Appearance) (Pt Warm) -Tenderness on Palpation (Lydia-wound No Skin Appearance) -Ulcer Cleansing Wound Cleanser -Foul Odor after Cleansing No -Anesthetic Used 4% Lidocaine Solution #2 POSTERIOR RLE- CALF -Combined with other wound No -Current Size (cm) - Length 3.4 -Current Size (cm) - Width 3 -Current Size (cm) - Depth 0.1 -Total Square Cm 10.2 -Photo Taken No -Epithelialization None Present -Tunneling No -Undermining/Tunneling No -Circular Undermining No -Exudate Amt Small (1-33%) -Exudate Type Serosanguineous -Wound Margin Distinct, Outline Attached -Granulation Amt Small (1-33%) -Granulation Quality Red -Slough/Fibrin Yes -Necrosis Amt Large (67-100%) -Necrotic Tissue Type Adherent Slough -Structure Exposed None/Limited to Skin Breakdown -Texture (Lydia-wound Skin Appearance) Scarring -Moisture (Lydia-wound Skin Appearance Dry/Scaly ) -Color (Lydia-wound Skin Appearance) Hemosiderin Staining -Temperature (Lydia-wound Skin No Abnormality Appearance) (Pt Warm) -Tenderness on Palpation (Lydia-wound No Skin Appearance) -Ulcer Cleansing Wound Cleanser -Foul Odor after Cleansing No -Anesthetic Used 4% Lidocaine Solution #1 POSTERIOR LLE -Combined with other wound No -Current Size (cm) - Length 8.1 -Current Size (cm) - Width 4 -Current Size (cm) - Depth 0.2 -Total Square Cm 32.4 -Photo Taken No -Epithelialization None Present -Tunneling No -Undermining/Tunneling No -Circular Undermining No -Exudate Amt Medium (34-66%) -Exudate Type Serosanguineous -Wound Margin Distinct, Outline Attached -Granulation Amt Small (1-33%) -Granulation Quality Red -Slough/Fibrin Yes -Necrosis Amt Large (67-100%) -Necrotic Tissue Type Adherent Slough -Structure Exposed None/Limited to Skin Breakdown -Texture (Lydia-wound Skin Appearance) Scarring -Moisture (Lydia-wound Skin Appearance Dry/Scaly ) -Color (Lydia-wound Skin Appearance) Hemosiderin Staining -Temperature (Lydia-wound Skin No Abnormality Appearance) (Pt Warm) -Tenderness on Palpation (Lydia-wound No Skin Appearance) -Ulcer Cleansing Wound Cleanser -Foul Odor after Cleansing No -Anesthetic Used 4% Lidocaine Solution [Edema Assessment] -Lower Limb Edema Present Yes -Right Calf (cm) 37.6 -Right Ankle (cm) 24.1 -Left Calf (cm) 39 -Left Ankle (cm) 31 WC - Nurse 2 - General Ulcer CM Notes Start: 02/25/18 09:22 Freq: Status: Active Protocol: Activity Type Activity Date Activity User E-Sign Co-Sign Detail Recorded Client Recorded Date Recorded By Document 03/04/18 12:48 DV [id number] 03/04/18 12:59 DV 03/04/18 12:48 Wound Center Nurse 2 [Procedure/Treatment] #3 RIGHT NUGENT -Time 12:50 -Correct Patient Yes -Correct Side, Site, Position Yes -Correct Procedure Yes -Procedure Performed Yes -Type of Procedure Debridement -Clinical Debridement Subcutaneous -Post Debridement Size (cm) - Length 4.0 -Post Debridement Size (cm) - Width 0.6 -Post Debridement Size (cm) - Depth 0.2 -Total Square Cm 2.40 -Wound/Ulcer Outcome Not Healed -Ulcer Cleansing Rinsed/ Irrigated with Saline -Foul Odor after Cleansing No -Bioengineered Tissue No -Bleeding Controlled with Pressure -Treatment Response Procedure Tolerated Well #2 POSTERIOR RLE- CALF -Time 12:57 -Correct Patient Yes -Correct Side, Site, Position Yes -Correct Procedure Yes -Procedure Performed Yes -Type of Procedure Debridement -Clinical Debridement Subcutaneous -Post Debridement Size (cm) - Length 4.0 -Post Debridement Size (cm) - Width 3.0 -Post Debridement Size (cm) - Depth 0.2 -Total Square Cm 12.00 -Wound/Ulcer Outcome Not Healed -Ulcer Cleansing Rinsed/ Irrigated with Saline -Foul Odor after Cleansing No -Bioengineered Tissue No -Bleeding Controlled with NA -Treatment Response Procedure Tolerated Well #1 POSTERIOR LLE -Time 12:49 -Correct Patient Yes -Correct Side, Site, Position Yes -Correct Procedure Yes -Procedure Performed Yes -Type of Procedure Debridement -Clinical Debridement Subcutaneous -Post Debridement Size (cm) - Length 8.5 -Post Debridement Size (cm) - Width 3.5 -Post Debridement Size (cm) - Depth 0.4 -Total Square Cm 29.75 -Wound/Ulcer Outcome Not Healed -Ulcer Cleansing Rinsed/ Irrigated with Saline -Foul Odor after Cleansing No -Bioengineered Tissue No -Bleeding Controlled with Pressure -Treatment Response Procedure Tolerated Well [See Physician Procedure note for Specifics] Pain Scale: 0-10 Numeric [Pain] -Is Patient Pain Free? Yes Musculoskeletal: No Muscle Wasting Neurological: Cranial nerves II-XII grossly intact Psych/Mental Status: Normal Affect Debridement Note Post-Debridement Measurements/Treatment WC - Nurse 2 - General Ulcer CM Notes Start: 02/25/18 09:22 Freq: Status: Active Protocol: Activity Type Activity Date Activity User E-Sign Co-Sign Detail Recorded Client Recorded Date Recorded By Document 02/25/18 11:33 DV [id number] 02/25/18 11:49 DV Document 03/04/18 12:48 DV [id number] 03/04/18 12:59 DV 02/25/18 03/04/18 11:33 12:48 Wound Center Nurse 2 #3 RIGHT NUGENT -Time 11:41 12:50 -Correct Patient Yes Yes -Correct Side, Site, Position Yes Yes -Correct Procedure Yes Yes -Procedure Performed Yes Yes -Type of Procedure Debridement Debridement -Clinical Debridement Subcutaneous Subcutaneous -Post Debridement Size (cm) - Length 4.5 4.0 -Post Debridement Size (cm) - Width 1.2 0.6 -Post Debridement Size (cm) - Depth 0.3 0.2 -Total Square Cm 5.40 2.40 -Wound/Ulcer Outcome Not Healed Not Healed -Ulcer Cleansing Rinsed/ Rinsed/ Irrigated with Irrigated with Saline Saline -Foul Odor after Cleansing No No -Bioengineered Tissue No No -Bleeding Controlled with NA Pressure -Treatment Response Procedure Procedure Tolerated Well Tolerated Well #2 POSTERIOR RLE- CALF -Time 11:43 12:57 -Correct Patient Yes Yes -Correct Side, Site, Position Yes Yes -Correct Procedure Yes Yes -Procedure Performed Yes Yes -Type of Procedure Debridement Debridement -Clinical Debridement Subcutaneous Subcutaneous -Post Debridement Size (cm) - Length 4.5 4.0 -Post Debridement Size (cm) - Width 3.0 3.0 -Post Debridement Size (cm) - Depth 0.2 0.2 -Total Square Cm 13.50 12.00 -Wound/Ulcer Outcome Not Healed Not Healed -Ulcer Cleansing Rinsed/ Rinsed/ Irrigated with Irrigated with Saline Saline -Foul Odor after Cleansing No No -Bioengineered Tissue No No -Bleeding Controlled with Pressure NA -Treatment Response Procedure Procedure Tolerated Well Tolerated Well #1 POSTERIOR LLE -Time 11:44 12:49 -Correct Patient Yes Yes -Correct Side, Site, Position Yes Yes -Correct Procedure Yes Yes -Procedure Performed Yes Yes -Type of Procedure Debridement Debridement -Clinical Debridement Subcutaneous Subcutaneous -Post Debridement Size (cm) - Length 8.8 8.5 -Post Debridement Size (cm) - Width 3.3 3.5 -Post Debridement Size (cm) - Depth 0.4 0.4 -Total Square Cm 29.04 29.75 -Wound/Ulcer Outcome Not Healed Not Healed -Ulcer Cleansing Rinsed/ Rinsed/ Irrigated with Irrigated with Saline Saline -Foul Odor after Cleansing No No -Bioengineered Tissue No No -Bleeding Controlled with Pressure Pressure -Treatment Response Procedure Procedure Tolerated Well Tolerated Well Pain Scale: 0-10 Numeric Is Patient Pain Free? Yes Yes Wound debrided: Left lower extremity posterior Wound Grade/Stage: Stage III Type of Debridement: Excisional debridement Anesthesia Used: 4% Lidocaine Solution Depth: Down to and including healthy tissue, in the subcutaneous layer Percentage of wound debrided: 100 Instrument Used: 7mm curette Tissue Removed: Slough and devitalized tissue Severity: Fat Layer Exposed Amount of bleeding with debridement: Mild Bleeding Controlled with: Pressure Patient tolerated procedure well - Additional Wound Wound debrided: Right nugent cluster Wound Grade/Stage: Stage II Type of Debridement: Excisional debridement Anesthesia Used: 4% Lidocaine Solution Depth: Down to and including healthy tissue, in the subcutaneous layer Percentage of wound debrided: 100 Instrument Used: 5mm curette Tissue Removed: Slough and devitalized tissue Severity: Fat Layer Exposed Amount of bleeding with debridement: Mild Bleeding Controlled with: Pressure Patient tolerated procedure: Patient tolerated procedure well - Additional Wound Wound debrided: Right lower extremity ( medial ) Wound Grade/Stage: Stage II Type of Debridement: Excisional debridement Anesthesia Used: 4% Lidocaine Solution Depth: Down to and including healthy tissue, in the subcutaneous layer Percentage of wound debrided: 100 Instrument Used: 5mm curette Tissue Removed: Slough and devitalized tissue Severity: Fat Layer Exposed Amount of bleeding with debridement: Mild Bleeding Controlled with: Pressure Patient tolerated procedure: Patient tolerated procedure well Assessment/Plan Clinical Impression(s) from Imaging Studies Knee X-Ray 02/25/18 13:03 IMPRESSION: Prominent superficial soft tissue edema. No significant osteoarthritic degenerative features of the bones. 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 Electronically Signed: Gregorio Barrera, at 18:52 EDT Tel , Service support , Tibia/Fibula X-Ray 02/25/18 13:04 IMPRESSION: Diffuse superficial soft tissue edema. No acute underlying osseous abnormality. Electronically Signed: Gregorio Barrera, at 18:53 EDT Tel , Service support , Ankle X-Ray 02/25/18 13:05 IMPRESSION: Severe soft tissue swelling. No acute underlying osseous abnormality. Electronically Signed: Gregorio Barrera, at 18:51 EDT Tel , Service support , Active Problems Ulcer of left lower extremity with fat layer exposed (Acute) Ulcer of right lower extremity with fat layer exposed (Acute) Chronic venous insufficiency (Acute) Non-healing ulcer (Acute) Assessment: Bilateral lower extremity ulcers with fat layer exposed. Chronic venous insufficiency. Chronic bilateral non healing wound. Congestive heart failure. Debility. Plan: No wound care done in the past week as patient could not afford products prescribed. No significant change in wounds/ulcers. Scheduled for his vascular and venous studies next week. Debridement done as documented above, procedure was well tolerated. Apply Fibricol with adaptic over top to all ulcers. patient however will benefit from Purapply. Levofloxacin per culture sensitivity. Single layer tubi tester regulator for edema management. Elevate lower extremity when sitted and in bed. Due to debility and lack of good support system, patient will benefit from Home health. Increased protein intake and protein supplements recommeneded. Follow up in 1 week. This note was generated with [employer] software. It may contain incorrect words, spelling, and punctuation that were not noted in checking the note before signing.
--- NOTE | 2018-03-04 19:09 | PN.PCM_ITS ---
(1) Ulcer of left lower extremity with fat layer exposed Status: Acute Current Visit: Yes Code(s): L97.922 - Non-pressure chronic ulcer of unspecified part of left lower leg with fat layer exposed (2) Ulcer of right lower extremity with fat layer exposed Status: Acute Current Visit: Yes Code(s): L97.912 - Non-pressure chronic ulcer of unspecified part of right lower leg with fat layer exposed (3) Chronic venous insufficiency Status: Acute Current Visit: Yes Code(s): I87.2 - Venous insufficiency ( chronic) (peripheral) (4) Non-healing ulcer Status: Acute Current Visit: Yes Code(s): L98.499 - Non-pressure chronic ulcer of skin of other sites with unspecified severity Type of Wound Date of Service: 03/04/18 Chief Complaint: Bilateral lower extremity ulcers. History of Wound: Mr. Diaz presents here with an at least 8 month history of bilateral lower extremity ulcers. He is here with his son and they are unsure of the exact onset but believe it must have been presnt for at least 8 months.They are also not sure of the precipitating factor. He lives with his who is largely incapapcitated and is helped by Home health. He has not had any significant care to his ulcers. He denies any known history of DM or PAD. He follows up with his PCP by whom he was referred here. He feels wells otherwise and denies chills, fever, significant discharge from the wound, nausea , vomiting or any change inhis bowel habit. Progress of Wound: Stable. No new complaints at this time. Could not afford Santyl and so has had nothing applied to his wounds. - Physical Exam Vital Signs Temp Pulse Resp BP 97.7 F L 70 18 148/90 H 03/04/18 12:07 03/04/18 12:07 03/04/18 12:07 03/04/18 12:07 General: Alert, Oriented x3, Cooperative, No apparent distress HEENT: Atraumatic, Normocephalic Oral: Moist Mucosa Neck: Supple Lungs: Normal air movement Abdomen: Non Tender Extremities: No cyanosis Skin: Ulcer/ Wound Wound Measurements and Assessment WC - Nurse 1 - General Ulcer Measurement Start: 02/25/18 09:22 Freq: Status: Active Protocol: Activity Type Activity Date Activity User E-Sign Co-Sign Detail Recorded Client Recorded Date Recorded By Document 03/04/18 12:07 [facility] [id number] 03/04/18 12:27 [facility] 03/04/18 12:07 Wound Center Nurse 1 [Ulcer Assessment] #4- LT NUGENT -Combined with other wound No -Current Size (cm) - Length 1.8 -Current Size (cm) - Width 1.1 -Current Size (cm) - Depth 0.1 -Total Square Cm 1.98 -Date of Last Picture (Recall this 03/04/18 field) -Photo Taken Yes -Epithelialization None Present -Tunneling No -Undermining/Tunneling No -Circular Undermining No -Exudate Amt Small (1-33%) -Exudate Type Serous -Wound Margin Distinct, Outline Attached -Granulation Amt Large (67-100%) -Granulation Quality Red -Slough/Fibrin No -Necrosis Amt None Present (0 %) -Structure Exposed None/Limited to Skin Breakdown -Texture (Lydia-wound Skin Appearance) Scarring -Moisture (Lydia-wound Skin Appearance Maceration ) -Color (Lydia-wound Skin Appearance) Palor -Temperature (Lydia-wound Skin No Abnormality Appearance) (Pt Warm) -Tenderness on Palpation (Lydia-wound No Skin Appearance) -Ulcer Cleansing Wound Cleanser -Foul Odor after Cleansing No -Anesthetic Used 4% Lidocaine Solution #3 RIGHT NUGENT -Combined with other wound No -Current Size (cm) - Length 4 -Current Size (cm) - Width 0.6 -Current Size (cm) - Depth 0.1 -Total Square Cm 2.4 -Photo Taken No -Epithelialization None Present -Tunneling No -Undermining/Tunneling No -Circular Undermining No -Exudate Amt Small (1-33%) -Exudate Type Serosanguineous -Wound Margin Distinct, Outline Attached -Granulation Amt Small (1-33%) -Granulation Quality Red -Slough/Fibrin Yes -Necrosis Amt Medium (34-66%) -Necrotic Tissue Type Adherent Slough -Structure Exposed None/Limited to Skin Breakdown -Texture (Lydia-wound Skin Appearance) Scarring -Moisture (Lydia-wound Skin Appearance Dry/Scaly ) -Color (Lydia-wound Skin Appearance) Hemosiderin Staining -Temperature (Lydia-wound Skin No Abnormality Appearance) (Pt Warm) -Tenderness on Palpation (Lydia-wound No Skin Appearance) -Ulcer Cleansing Wound Cleanser -Foul Odor after Cleansing No -Anesthetic Used 4% Lidocaine Solution #2 POSTERIOR RLE- CALF -Combined with other wound No -Current Size (cm) - Length 3.4 -Current Size (cm) - Width 3 -Current Size (cm) - Depth 0.1 -Total Square Cm 10.2 -Photo Taken No -Epithelialization None Present -Tunneling No -Undermining/Tunneling No -Circular Undermining No -Exudate Amt Small (1-33%) -Exudate Type Serosanguineous -Wound Margin Distinct, Outline Attached -Granulation Amt Small (1-33%) -Granulation Quality Red -Slough/Fibrin Yes -Necrosis Amt Large (67-100%) -Necrotic Tissue Type Adherent Slough -Structure Exposed None/Limited to Skin Breakdown -Texture (Lydia-wound Skin Appearance) Scarring -Moisture (Lydia-wound Skin Appearance Dry/Scaly ) -Color (Lydia-wound Skin Appearance) Hemosiderin Staining -Temperature (Lydia-wound Skin No Abnormality Appearance) (Pt Warm) -Tenderness on Palpation (Lydia-wound No Skin Appearance) -Ulcer Cleansing Wound Cleanser -Foul Odor after Cleansing No -Anesthetic Used 4% Lidocaine Solution #1 POSTERIOR LLE -Combined with other wound No -Current Size (cm) - Length 8.1 -Current Size (cm) - Width 4 -Current Size (cm) - Depth 0.2 -Total Square Cm 32.4 -Photo Taken No -Epithelialization None Present -Tunneling No -Undermining/Tunneling No -Circular Undermining No -Exudate Amt Medium (34-66%) -Exudate Type Serosanguineous -Wound Margin Distinct, Outline Attached -Granulation Amt Small (1-33%) -Granulation Quality Red -Slough/Fibrin Yes -Necrosis Amt Large (67-100%) -Necrotic Tissue Type Adherent Slough -Structure Exposed None/Limited to Skin Breakdown -Texture (Lydia-wound Skin Appearance) Scarring -Moisture (Lydia-wound Skin Appearance Dry/Scaly ) -Color (Lydia-wound Skin Appearance) Hemosiderin Staining -Temperature (Lydia-wound Skin No Abnormality Appearance) (Pt Warm) -Tenderness on Palpation (Lydia-wound No Skin Appearance) -Ulcer Cleansing Wound Cleanser -Foul Odor after Cleansing No -Anesthetic Used 4% Lidocaine Solution [Edema Assessment] -Lower Limb Edema Present Yes -Right Calf (cm) 37.6 -Right Ankle (cm) 24.1 -Left Calf (cm) 39 -Left Ankle (cm) 31 WC - Nurse 2 - General Ulcer CM Notes Start: 02/25/18 09:22 Freq: Status: Active Protocol: Activity Type Activity Date Activity User E-Sign Co-Sign Detail Recorded Client Recorded Date Recorded By Document 03/04/18 12:48 DV [id number] 03/04/18 12:59 DV 03/04/18 12:48 Wound Center Nurse 2 [Procedure/Treatment] #3 RIGHT NUGENT -Time 12:50 -Correct Patient Yes -Correct Side, Site, Position Yes -Correct Procedure Yes -Procedure Performed Yes -Type of Procedure Debridement -Clinical Debridement Subcutaneous -Post Debridement Size (cm) - Length 4.0 -Post Debridement Size (cm) - Width 0.6 -Post Debridement Size (cm) - Depth 0.2 -Total Square Cm 2.40 -Wound/Ulcer Outcome Not Healed -Ulcer Cleansing Rinsed/ Irrigated with Saline -Foul Odor after Cleansing No -Bioengineered Tissue No -Bleeding Controlled with Pressure -Treatment Response Procedure Tolerated Well #2 POSTERIOR RLE- CALF -Time 12:57 -Correct Patient Yes -Correct Side, Site, Position Yes -Correct Procedure Yes -Procedure Performed Yes -Type of Procedure Debridement -Clinical Debridement Subcutaneous -Post Debridement Size (cm) - Length 4.0 -Post Debridement Size (cm) - Width 3.0 -Post Debridement Size (cm) - Depth 0.2 -Total Square Cm 12.00 -Wound/Ulcer Outcome Not Healed -Ulcer Cleansing Rinsed/ Irrigated with Saline -Foul Odor after Cleansing No -Bioengineered Tissue No -Bleeding Controlled with NA -Treatment Response Procedure Tolerated Well #1 POSTERIOR LLE -Time 12:49 -Correct Patient Yes -Correct Side, Site, Position Yes -Correct Procedure Yes -Procedure Performed Yes -Type of Procedure Debridement -Clinical Debridement Subcutaneous -Post Debridement Size (cm) - Length 8.5 -Post Debridement Size (cm) - Width 3.5 -Post Debridement Size (cm) - Depth 0.4 -Total Square Cm 29.75 -Wound/Ulcer Outcome Not Healed -Ulcer Cleansing Rinsed/ Irrigated with Saline -Foul Odor after Cleansing No -Bioengineered Tissue No -Bleeding Controlled with Pressure -Treatment Response Procedure Tolerated Well [See Physician Procedure note for Specifics] Pain Scale: 0-10 Numeric [Pain] -Is Patient Pain Free? Yes Musculoskeletal: No Muscle Wasting Neurological: Cranial nerves II-XII grossly intact Psych/Mental Status: Normal Affect Debridement Note Post-Debridement Measurements/Treatment WC - Nurse 2 - General Ulcer CM Notes Start: 02/25/18 09:22 Freq: Status: Active Protocol: Activity Type Activity Date Activity User E-Sign Co-Sign Detail Recorded Client Recorded Date Recorded By Document 02/25/18 11:33 DV [id number] 02/25/18 11:49 DV Document 03/04/18 12:48 DV [id number] 03/04/18 12:59 DV 02/25/18 03/04/18 11:33 12:48 Wound Center Nurse 2 #3 RIGHT NUGENT -Time 11:41 12:50 -Correct Patient Yes Yes -Correct Side, Site, Position Yes Yes -Correct Procedure Yes Yes -Procedure Performed Yes Yes -Type of Procedure Debridement Debridement -Clinical Debridement Subcutaneous Subcutaneous -Post Debridement Size (cm) - Length 4.5 4.0 -Post Debridement Size (cm) - Width 1.2 0.6 -Post Debridement Size (cm) - Depth 0.3 0.2 -Total Square Cm 5.40 2.40 -Wound/Ulcer Outcome Not Healed Not Healed -Ulcer Cleansing Rinsed/ Rinsed/ Irrigated with Irrigated with Saline Saline -Foul Odor after Cleansing No No -Bioengineered Tissue No No -Bleeding Controlled with NA Pressure -Treatment Response Procedure Procedure Tolerated Well Tolerated Well #2 POSTERIOR RLE- CALF -Time 11:43 12:57 -Correct Patient Yes Yes -Correct Side, Site, Position Yes Yes -Correct Procedure Yes Yes -Procedure Performed Yes Yes -Type of Procedure Debridement Debridement -Clinical Debridement Subcutaneous Subcutaneous -Post Debridement Size (cm) - Length 4.5 4.0 -Post Debridement Size (cm) - Width 3.0 3.0 -Post Debridement Size (cm) - Depth 0.2 0.2 -Total Square Cm 13.50 12.00 -Wound/Ulcer Outcome Not Healed Not Healed -Ulcer Cleansing Rinsed/ Rinsed/ Irrigated with Irrigated with Saline Saline -Foul Odor after Cleansing No No -Bioengineered Tissue No No -Bleeding Controlled with Pressure NA -Treatment Response Procedure Procedure Tolerated Well Tolerated Well #1 POSTERIOR LLE -Time 11:44 12:49 -Correct Patient Yes Yes -Correct Side, Site, Position Yes Yes -Correct Procedure Yes Yes -Procedure Performed Yes Yes -Type of Procedure Debridement Debridement -Clinical Debridement Subcutaneous Subcutaneous -Post Debridement Size (cm) - Length 8.8 8.5 -Post Debridement Size (cm) - Width 3.3 3.5 -Post Debridement Size (cm) - Depth 0.4 0.4 -Total Square Cm 29.04 29.75 -Wound/Ulcer Outcome Not Healed Not Healed -Ulcer Cleansing Rinsed/ Rinsed/ Irrigated with Irrigated with Saline Saline -Foul Odor after Cleansing No No -Bioengineered Tissue No No -Bleeding Controlled with Pressure Pressure -Treatment Response Procedure Procedure Tolerated Well Tolerated Well Pain Scale: 0-10 Numeric Is Patient Pain Free? Yes Yes Wound debrided: Left lower extremity posterior Wound Grade/Stage: Stage III Type of Debridement: Excisional debridement Anesthesia Used: 4% Lidocaine Solution Depth: Down to and including healthy tissue, in the subcutaneous layer Percentage of wound debrided: 100 Instrument Used: 7mm curette Tissue Removed: Slough and devitalized tissue Severity: Fat Layer Exposed Amount of bleeding with debridement: Mild Bleeding Controlled with: Pressure Patient tolerated procedure well - Additional Wound Wound debrided: Right nugent cluster Wound Grade/Stage: Stage II Type of Debridement: Excisional debridement Anesthesia Used: 4% Lidocaine Solution Depth: Down to and including healthy tissue, in the subcutaneous layer Percentage of wound debrided: 100 Instrument Used: 5mm curette Tissue Removed: Slough and devitalized tissue Severity: Fat Layer Exposed Amount of bleeding with debridement: Mild Bleeding Controlled with: Pressure Patient tolerated procedure: Patient tolerated procedure well - Additional Wound Wound debrided: Right lower extremity ( medial ) Wound Grade/Stage: Stage II Type of Debridement: Excisional debridement Anesthesia Used: 4% Lidocaine Solution Depth: Down to and including healthy tissue, in the subcutaneous layer Percentage of wound debrided: 100 Instrument Used: 5mm curette Tissue Removed: Slough and devitalized tissue Severity: Fat Layer Exposed Amount of bleeding with debridement: Mild Bleeding Controlled with: Pressure Patient tolerated procedure: Patient tolerated procedure well Assessment/Plan Clinical Impression(s) from Imaging Studies Knee X-Ray 02/25/18 13:03 IMPRESSION: Prominent superficial soft tissue edema. No significant osteoarthritic degenerative features of the bones. 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 Electronically Signed: Gregorio Barrera, at 18:52 EDT Tel , Service support , Tibia/Fibula X-Ray 02/25/18 13:04 IMPRESSION: Diffuse superficial soft tissue edema. No acute underlying osseous abnormality. Electronically Signed: Gregorio Barrera, at 18:53 EDT Tel , Service support , Ankle X-Ray 02/25/18 13:05 IMPRESSION: Severe soft tissue swelling. No acute underlying osseous abnormality. Electronically Signed: Gregorio Barrera, at 18:51 EDT Tel , Service support , Active Problems Ulcer of left lower extremity with fat layer exposed (Acute) Ulcer of right lower extremity with fat layer exposed (Acute) Chronic venous insufficiency (Acute) Non-healing ulcer (Acute) Assessment: Bilateral lower extremity ulcers with fat layer exposed. Chronic venous insufficiency. Chronic bilateral non healing wound. Congestive heart failure. Debility. Plan: No wound care done in the past week as patient could not afford products prescribed. No significant change in wounds/ulcers. Scheduled for his vascular and venous studies next week. Debridement done as documented above, procedure was well tolerated. Apply Fibricol with adaptic over top to all ulcers. patient however will benefit from Purapply. Levofloxacin per culture sensitivity. Single layer tubi manager human capital for edema management. Elevate lower extremity when sitted and in bed. Due to debility and lack of good support system, patient will benefit from Home health. Increased protein intake and protein supplements recommeneded. Follow up in 1 week. This note was generated with t-Artation software. It may contain incorrect words, spelling, and punctuation that were not noted in checking the note before signing.
== END 2018-03-04 23:59 ==
LOC: WC 11:30
PROVIDERS: Family Provider Family Medicine; PCP Family Medicine; Visit Provider Internal Medicine
DX: I87.2 Venous insufficiency (chronic) (peripheral) (principal); L97.822 Non-pressure chronic ulcer of other part of left lower leg with fat layer exposed; L97.812 Non-pressure chronic ulcer of other part of right lower leg with fat layer exposed; I50.9 Heart failure, unspecified; R60.0 Localized edema; Z79.899 Other long term (current) drug therapy; F17.200 Nicotine dependence, unspecified, uncomplicated
CPT/HCPCS: 11042; 11045; 36415; 73564; 73590; 73610; 80053; 83036; 84134; 85025; 87070; 87075; 87077; 87186; 87205; 99214; G0463

== ENCOUNTER → 2018-03-10 12:53 | Outpatient (CLI) | payer MEDICARE, OTHER, SELFPAY ==
--- NOTE | 2018-03-10 11:10 | VDLE_ITS ---
Reason For Study: ulcers, pain and swelling RIGHT LEFT CFV is compressible, spontaneous, phasic, FV is compressible, spontaneous, phasic, competent and demonstrates normal competent and demonstrates normal augmentation. augmentation. FV is compressible, spontaneous, phasic, POP V is compressible, spontaneous, phasic, competent and demonstrates normal competent and demonstrates normal augmentation. augmentation. POP V is compressible, spontaneous, phasic, T/P Trunk is compressible. competent and demonstrates normal PTV is compressible. augmentation. LT PerV is compressible. T/P Trunk is compressible. CFV is partially compressible with decreased PTV is compressible. flow. DVT is hypoechoic consistent with RT PerV is compressible. acute DVT. S-F Junction is competent. S-F Junction is competent. GSV is competent throughout. GSV is competent throughout. SSV is competent. SSV is competent. Procedure Exam performed in department. The exam was diagnostic. A preliminary report was called and/or faxed to the wound healing center. Pt taken to ED per C RN. Interpretation Summary Acute deep vein thrombosis is noted in the left common femoral vein. The remainder of the left lower extremity deep venous system is patent and compressible. The left femoral vein and popliteal vein are competent. Deep veins of the right lower extremity are patent and compressible segmentally. There is no evidence of right lower extremity deep vein thrombosis. Valvular competence appears intact within the proximal deep venous system on the right . The greater saphenous veins appear bilaterally patent and compressible segmentally. Sapheno-femoral junctions are bilaterally competent . Valvular competence appears to be intact segmentally within the greater saphenous veins bilaterally. Small saphenous veins are patent and competent bilaterally. Ordering Physician: Jero Tucekr Performed By: Ravin Mtz RVT
--- NOTE | 2018-03-10 12:53 | DT_ITS ---
This patient was seen during an EMR downtime March 08, 2018 - March 15, 2018. This patient may have a combination of paper and electronic documentation or all paper documentation. All documentation is viewable within the e-chart portion of [facility] for each patient visit.
== END ==
PROVIDERS: Family Provider Family Medicine; PCP Family Medicine; Visit Provider Internal Medicine
DX: L97.909 Non-pressure chronic ulcer of unspecified part of unspecified lower leg with unspecified severity (principal); M79.89 Other specified soft tissue disorders; R09.89 Other specified symptoms and signs involving the circulatory and respiratory systems; R60.9 Edema, unspecified; R52 Pain, unspecified
CPT/HCPCS: 93970

== ENCOUNTER 2018-03-10 14:43 | Emergency (ER) | payer MEDICARE, OTHER, SELFPAY ==
--- NOTE | 2018-03-10 14:43 | DT_ITS ---
This patient was seen during an EMR downtime March 08, 2018 - March 15, 2018. This patient may have a combination of paper and electronic documentation or all paper documentation. All documentation is viewable within the e-chart portion of [facility] for each patient visit.
[2018-03-13 08:16] LABS: Anion Gap 8 (5-15); BUN 17 mg/dL (7-18); BUN/Creat Ratio 15.6 RATIO (10-20); Calcium,Total 9.1 mg/dL (8.5-10.1); Chloride 103 mmol/L (98-107); Creatinine, Serum 1.09 mg/dL (0.70-1.30); EST Glomerular Filtration Rate 70 mL/min (>60); Est Glom Filt Rate - Afr Amer 85 mL/min (>60); Glucose 91 mg/dL (74-106); Potassium 3.9 mmol/L (3.5-5.1); Sodium Level 141 mmol/L (136-145)
== END 2018-03-10 18:10 | disposition home or self-care (01) ==
LOC: ED 03-11 14:21
PROVIDERS: Emergency Provider Emergency Medicine; Family Provider Family Medicine; PCP Family Medicine
DX: I82.412 Acute embolism and thrombosis of left femoral vein (principal); I10 Essential (primary) hypertension; R05 Cough; Z79.890 Hormone replacement therapy; Z79.899 Other long term (current) drug therapy; L97.909 Non-pressure chronic ulcer of unspecified part of unspecified lower leg with unspecified severity; M79.89 Other specified soft tissue disorders; R09.89 Other specified symptoms and signs involving the circulatory and respiratory systems; R60.9 Edema, unspecified; R52 Pain, unspecified
CPT/HCPCS: 80048; 93970; 99284

== ENCOUNTER 2018-04-01 09:00 | Outpatient (RCR) | payer MEDICARE, OTHER, SELFPAY ==
[2018-03-05 01:19] VITALS: BP 148/90; PULSE 70; RESP 18; TEMP 36.5
[2018-03-18 10:42] VITALS: BP 130/69; PULSE 77; RESP 18; TEMP 36.2
--- NOTE | 2018-03-18 12:26 | PCM.WC.PN ---
(1) Chronic venous insufficiency Status: Acute Current Visit: No Code(s): I87.2 - Venous insufficiency (chronic) (peripheral) (2) Ulcer of left lower extremity with fat layer exposed Status: Acute Current Visit: No Code(s): L97.922 - Non-pressure chronic ulcer of unspecified part of left lower leg with fat layer exposed (3) Ulcer of right lower extremity with fat layer exposed Status: Acute Current Visit: No Code(s): L97.912 - Non-pressure chronic ulcer of unspecified part of right lower leg with fat layer exposed Type of Wound Date of Service: 03/18/18 Chief Complaint: Bilateral lower extremity ulcers. History of Wound: Mr. Diaz presents here with an at least 8 month history of bilateral lower extremity ulcers. He is here with his son and they are unsure of the exact onset but believe it must have been presnt for at least 8 months.They are also not sure of the precipitating factor. He lives with his who is largely incapapcitated and is helped by Home health. He has not had any significant care to his ulcers. He denies any known history of DM or PAD. He follows up with his PCP by whom he was referred here. He feels wells otherwise and denies chills, fever, significant discharge from the wound, nausea, vomiting or any change inhis bowel habit. Progress of Wound: Improving. - Physical Exam Vital Signs Temp Pulse Resp BP 97.1 F L 77 18 130/69 H 03/18/18 10:42 03/18/18 10:42 03/18/18 10:42 03/18/18 10:42 General: Alert, Oriented x3, Cooperative, No apparent distress HEENT: Atraumatic Oral: Moist Mucosa Neck: Supple Lungs: Normal air movement Cardiovascular: Regular rate Abdomen: Non Tender Extremities: No cyanosis, Edema Skin: Ulcer/ Wound Wound Measurements and Assessment WC - Nurse 1 - General Ulcer Measurement Start: 03/18/18 10:42 Freq: Status: Active Protocol: Activity Type Activity Date Activity User E-Sign Co-Sign Detail Recorded Client Recorded Date Recorded By Document 03/18/18 10:42 DL [id number] 03/18/18 10:57 DL 03/18/18 10:42 Wound Center Nurse 1 [Ulcer Assessment] #3 RIGHT KRISHNAN -Current Size (cm) - Length 0.8 -Current Size (cm) - Width 0.5 -Current Size (cm) - Depth 0.1 -Total Square Cm 0.40 -Epithelialization None Present -Tunneling No -Undermining/Tunneling No -Circular Undermining No -Exudate Amt None Present (0 %) -Wound Margin Distinct, Outline Attached -Granulation Amt None Present (0 %) -Slough/Fibrin Yes -Necrosis Amt None Present (0 %) -Necrotic Tissue Type Adherent Slough -Structure Exposed None/Limited to Skin Breakdown -Texture (Lydia-wound Skin Appearance) Scarring -Moisture (Lydia-wound Skin Appearance No Abnormality ) -Color (Lydia-wound Skin Appearance) Hemosiderin Staining -Temperature (Lydia-wound Skin No Abnormality Appearance) (Pt Warm) -Tenderness on Palpation (Lydia-wound No Skin Appearance) -Ulcer Cleansing Wound Cleanser -Foul Odor after Cleansing No -Anesthetic Used 4% Lidocaine Solution #2 POSTERIOR RLE- CALF -Current Size (cm) - Length 1.0 -Current Size (cm) - Width 0.7 -Current Size (cm) - Depth 0.1 -Total Square Cm 0.70 -Epithelialization None Present -Tunneling No -Undermining/Tunneling No -Circular Undermining No -Exudate Amt None Present (0 %) -Wound Margin Distinct, Outline Attached -Granulation Amt None Present (0 %) -Granulation Quality N/A -Necrosis Amt None Present (0 %) -Necrotic Tissue Type Adherent Slough -Structure Exposed N/A -Texture (Lydia-wound Skin Appearance) Scarring -Moisture (Lydia-wound Skin Appearance No Abnormality ) -Color (Lydia-wound Skin Appearance) No Abnormality -Temperature (Lydia-wound Skin No Abnormality Appearance) (Pt Warm) -Tenderness on Palpation (Lydia-wound No Skin Appearance) -Ulcer Cleansing Wound Cleanser -Foul Odor after Cleansing No -Anesthetic Used 4% Lidocaine Solution #1 POSTERIOR LLE -Current Size (cm) - Length 6.3 -Current Size (cm) - Width 2.7 -Current Size (cm) - Depth 0.2 -Total Square Cm 17.01 -Exudate Amt Medium (34-66%) -Exudate Type Serosanguineous -Wound Margin Distinct, Outline Attached -Granulation Amt Medium (34-66%) -Granulation Quality Red -Slough/Fibrin Yes -Necrosis Amt None Present (0 %) -Necrotic Tissue Type Adherent Slough -Structure Exposed None/Limited to Skin Breakdown -Texture (Lydia-wound Skin Appearance) Scarring -Moisture (Lydia-wound Skin Appearance No Abnormality ) -Color (Lydia-wound Skin Appearance) Ecchymosis Erythema -Temperature (Lydia-wound Skin No Abnormality Appearance) (Pt Warm) -Tenderness on Palpation (Lydia-wound No Skin Appearance) -Ulcer Cleansing Wound Cleanser -Foul Odor after Cleansing No -Anesthetic Used 4% Lidocaine Solution [Edema Assessment] -Lower Limb Edema Present Yes -Right Calf (cm) 33 -Right Ankle (cm) 21.5 -Left Calf (cm) 37 -Left Ankle (cm) 27.5 WC - Nurse 2 - General Ulcer CM Notes Start: 03/18/18 10:42 Freq: Status: Active Protocol: Activity Type Activity Date Activity User E-Sign Co-Sign Detail Recorded Client Recorded Date Recorded By Document 03/18/18 11:45 DV [id number] 03/18/18 12:06 DV 03/18/18 11:45 Wound Center Nurse 2 [Procedure/Treatment] #3 RIGHT KRISHNAN -Time 11:52 -Correct Patient Yes -Correct Side, Site, Position Yes -Correct Procedure Yes -Procedure Performed Yes -Type of Procedure Debridement -Clinical Debridement Subcutaneous -Post Debridement Size (cm) - Length 0.8 -Post Debridement Size (cm) - Width 0.4 -Post Debridement Size (cm) - Depth 0.2 -Total Square Cm 0.32 -Wound/Ulcer Outcome Not Healed -Ulcer Cleansing Rinsed/ Irrigated with Saline -Foul Odor after Cleansing No -Bioengineered Tissue Yes -Type of bioengineered Tissue [id number] -Expiration Date 10/16/19 -Product Lot Number [id number] -Percent Used 20 -Saline Lot Number [id number] -Bleeding Controlled with Pressure -Treatment Response Procedure Tolerated Well #2 POSTERIOR RLE- CALF -Time 11:52 -Correct Patient Yes -Procedure Performed No -Post Debridement Size (cm) - Length 0 -Post Debridement Size (cm) - Width 0 -Post Debridement Size (cm) - Depth 0 -Total Square Cm 0 -Wound/Ulcer Outcome Healed- Epithelialized #1 POSTERIOR LLE -Time 11:49 -Correct Patient Yes -Correct Side, Site, Position Yes -Correct Procedure Yes -Procedure Performed Yes -Type of Procedure Debridement -Clinical Debridement Subcutaneous -Post Debridement Size (cm) - Length 6.0 -Post Debridement Size (cm) - Width 2.5 -Post Debridement Size (cm) - Depth 0.2 -Total Square Cm 15.00 -Wound/Ulcer Outcome Not Healed -Ulcer Cleansing Rinsed/ Irrigated with Saline -Foul Odor after Cleansing No -Bioengineered Tissue No -Expiration Date 10/16/19 -Product Lot Number [id number] -Percent Used 80 -Saline Lot Number [id number] -Bleeding Controlled with Pressure -Treatment Response Procedure Tolerated Well [See Physician Procedure note for Specifics] Pain Scale: 0-10 Numeric [Pain] -Is Patient Pain Free? Yes Musculoskeletal: No Muscle Wasting Neurological: Cranial nerves II-XII grossly intact Psych/Mental Status: Normal Affect Debridement Note Post-Debridement Measurements/Treatment WC - Nurse 2 - General Ulcer CM Notes Start: 03/18/18 10:42 Freq: Status: Active Protocol: Activity Type Activity Date Activity User E-Sign Co-Sign Detail Recorded Client Recorded Date Recorded By Document 03/18/18 11:45 DV [id number] 03/18/18 12:06 DV 03/18/18 11:45 Wound Center Nurse 2 #3 RIGHT KRISHNAN -Time 11:52 -Correct Patient Yes -Correct Side, Site, Position Yes -Correct Procedure Yes -Procedure Performed Yes -Type of Procedure Debridement -Clinical Debridement Subcutaneous -Post Debridement Size (cm) - Length 0.8 -Post Debridement Size (cm) - Width 0.4 -Post Debridement Size (cm) - Depth 0.2 -Total Square Cm 0.32 -Wound/Ulcer Outcome Not Healed -Ulcer Cleansing Rinsed/ Irrigated with Saline -Foul Odor after Cleansing No -Bioengineered Tissue Yes -Type of bioengineered Tissue [id number] -Expiration Date 10/16/19 -Product Lot Number [id number] -Percent Used 20 -Saline Lot Number [id number] -Bleeding Controlled with Pressure -Treatment Response Procedure Tolerated Well #2 POSTERIOR RLE- CALF -Time 11:52 -Correct Patient Yes -Procedure Performed No -Post Debridement Size (cm) - Length 0 -Post Debridement Size (cm) - Width 0 -Post Debridement Size (cm) - Depth 0 -Total Square Cm 0 -Wound/Ulcer Outcome Healed- Epithelialized #1 POSTERIOR LLE -Time 11:49 -Correct Patient Yes -Correct Side, Site, Position Yes -Correct Procedure Yes -Procedure Performed Yes -Type of Procedure Debridement -Clinical Debridement Subcutaneous -Post Debridement Size (cm) - Length 6.0 -Post Debridement Size (cm) - Width 2.5 -Post Debridement Size (cm) - Depth 0.2 -Total Square Cm 15.00 -Wound/Ulcer Outcome Not Healed -Ulcer Cleansing Rinsed/ Irrigated with Saline -Foul Odor after Cleansing No -Bioengineered Tissue No -Expiration Date 10/16/19 -Product Lot Number [id number] -Percent Used 80 -Saline Lot Number [id number] -Bleeding Controlled with Pressure -Treatment Response Procedure Tolerated Well Pain Scale: 0-10 Numeric Is Patient Pain Free? Yes Wound debrided: Left lower extremity ( posterior ) Wound Grade/Stage: Stage III Type of Debridement: Excisional debridement Anesthesia Used: 4% Lidocaine Solution Depth: Down to and including healthy tissue, in the subcutaneous layer Percentage of wound debrided: 100 Instrument Used: 7mm curette Tissue Removed: Slough and devitalized tisue Severity: Fat Layer Exposed Amount of bleeding with debridement: Mild Bleeding Controlled with: Pressure Patient tolerated procedure well - Additional Wound Wound debrided: Right Krishnan Wound Grade/Stage: Stage II Type of Debridement: Excisional debridement Anesthesia Used: 4% Lidocaine Solution Depth: Down to and including healthy tissue, in the subcutaneous layer Percentage of wound debrided: 100 Instrument Used: 5mm curette Tissue Removed: Slough and devitalized tissue Severity: Fat Layer Exposed Amount of bleeding with debridement: Mild Bleeding Controlled with: Pressure Patient tolerated procedure: Patient tolerated procedure well Assessment/Plan Assessment: Bilateral lower extremity ulcers with fat layer exposed. Chronic venous insufficiency. Chronic bilateral non healing wound. Congestive heart failure. Debility. Plan: Significant improvement in the past week. Debridement done as documented above, procedure was well tolerated. Second application of Purapply one today to both ulcers. Moistened with saline, covered with wound veil and secured with steristrips. Elevate lower extremity when sitted and in bed. Continue Tubi garden consultant for edema management. Due to debility and lack of good support system, patient will benefit from Home health. Increased protein intake and protein supplements recommeneded. Follow up in 1 week. This note was generated with [employer]og[employer] software. It may contain incorrect words, spelling, and punctuation that were not noted in checking the note before signing.
--- NOTE | 2018-03-18 12:31 | PN.PCM_ITS ---
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 History of Wound: Mr. Diaz presents here with an at least 8 month history of bilateral lower extremity ulcers. He is here with his son and they are unsure of the exact onset but believe it must have been presnt for at least 8 months.They are also not sure of the precipitating factor. He lives with his who is largely incapapcitated and is helped by Home health. He has not had any significant care to his ulcers. He denies any known history of DM or PAD. He follows up with his PCP by whom he was referred here. He feels wells otherwise and denies chills, fever, significant discharge from the wound, nausea , vomiting or any change inhis bowel habit. Progress of Wound: Improving. - Physical Exam Vital Signs Temp Pulse Resp BP 97.1 F L 77 18 130/69 H 03/18/18 10:42 03/18/18 10:42 03/18/18 10:42 03/18/18 10:42 General: Alert, Oriented x3, Cooperative, No apparent distress HEENT: Atraumatic Oral: Moist Mucosa Neck: Supple Lungs: Normal air movement Cardiovascular: Regular rate Abdomen: Non Tender Extremities: No cyanosis, Edema Skin: Ulcer/ Wound Wound Measurements and Assessment WC - Nurse 1 - General Ulcer Measurement Start: 03/18/18 10:42 Freq: Status: Active Protocol: Activity Type Activity Date Activity User E-Sign Co-Sign Detail Recorded Client Recorded Date Recorded By Document 03/18/18 10:42 DL [id number] 03/18/18 10:57 DL 03/18/18 10:42 Wound Center Nurse 1 [Ulcer Assessment] #3 RIGHT KRISHNAN -Current Size (cm) - Length 0.8 -Current Size (cm) - Width 0.5 -Current Size (cm) - Depth 0.1 -Total Square Cm 0.40 -Epithelialization None Present -Tunneling No -Undermining/Tunneling No -Circular Undermining No -Exudate Amt None Present (0 %) -Wound Margin Distinct, Outline Attached -Granulation Amt None Present (0 %) -Slough/Fibrin Yes -Necrosis Amt None Present (0 %) -Necrotic Tissue Type Adherent Slough -Structure Exposed None/Limited to Skin Breakdown -Texture (Lydia-wound Skin Appearance) Scarring -Moisture (Lydia-wound Skin Appearance No Abnormality ) -Color (Lydia-wound Skin Appearance) Hemosiderin Staining -Temperature (Lydia-wound Skin No Abnormality Appearance) (Pt Warm) -Tenderness on Palpation (Lydia-wound No Skin Appearance) -Ulcer Cleansing Wound Cleanser -Foul Odor after Cleansing No -Anesthetic Used 4% Lidocaine Solution #2 POSTERIOR RLE- CALF -Current Size (cm) - Length 1.0 -Current Size (cm) - Width 0.7 -Current Size (cm) - Depth 0.1 -Total Square Cm 0.70 -Epithelialization None Present -Tunneling No -Undermining/Tunneling No -Circular Undermining No -Exudate Amt None Present (0 %) -Wound Margin Distinct, Outline Attached -Granulation Amt None Present (0 %) -Granulation Quality N/A -Necrosis Amt None Present (0 %) -Necrotic Tissue Type Adherent Slough -Structure Exposed N/A -Texture (Lydia-wound Skin Appearance) Scarring -Moisture (Lydia-wound Skin Appearance No Abnormality ) -Color (Lydia-wound Skin Appearance) No Abnormality -Temperature (Lydia-wound Skin No Abnormality Appearance) (Pt Warm) -Tenderness on Palpation (Lydia-wound No Skin Appearance) -Ulcer Cleansing Wound Cleanser -Foul Odor after Cleansing No -Anesthetic Used 4% Lidocaine Solution #1 POSTERIOR LLE -Current Size (cm) - Length 6.3 -Current Size (cm) - Width 2.7 -Current Size (cm) - Depth 0.2 -Total Square Cm 17.01 -Exudate Amt Medium (34-66%) -Exudate Type Serosanguineous -Wound Margin Distinct, Outline Attached -Granulation Amt Medium (34-66%) -Granulation Quality Red -Slough/Fibrin Yes -Necrosis Amt None Present (0 %) -Necrotic Tissue Type Adherent Slough -Structure Exposed None/Limited to Skin Breakdown -Texture (Lydia-wound Skin Appearance) Scarring -Moisture (Lydia-wound Skin Appearance No Abnormality ) -Color (Lydia-wound Skin Appearance) Ecchymosis Erythema -Temperature (Lydia-wound Skin No Abnormality Appearance) (Pt Warm) -Tenderness on Palpation (Lydia-wound No Skin Appearance) -Ulcer Cleansing Wound Cleanser -Foul Odor after Cleansing No -Anesthetic Used 4% Lidocaine Solution [Edema Assessment] -Lower Limb Edema Present Yes -Right Calf (cm) 33 -Right Ankle (cm) 21.5 -Left Calf (cm) 37 -Left Ankle (cm) 27.5 WC - Nurse 2 - General Ulcer CM Notes Start: 03/18/18 10:42 Freq: Status: Active Protocol: Activity Type Activity Date Activity User E-Sign Co-Sign Detail Recorded Client Recorded Date Recorded By Document 03/18/18 11:45 DV [id number] 03/18/18 12:06 DV 03/18/18 11:45 Wound Center Nurse 2 [Procedure/Treatment] #3 RIGHT KRISHNAN -Time 11:52 -Correct Patient Yes -Correct Side, Site, Position Yes -Correct Procedure Yes -Procedure Performed Yes -Type of Procedure Debridement -Clinical Debridement Subcutaneous -Post Debridement Size (cm) - Length 0.8 -Post Debridement Size (cm) - Width 0.4 -Post Debridement Size (cm) - Depth 0.2 -Total Square Cm 0.32 -Wound/Ulcer Outcome Not Healed -Ulcer Cleansing Rinsed/ Irrigated with Saline -Foul Odor after Cleansing No -Bioengineered Tissue Yes -Type of bioengineered Tissue [id number] -Expiration Date 10/16/19 -Product Lot Number [id number] -Percent Used 20 -Saline Lot Number [id number] -Bleeding Controlled with Pressure -Treatment Response Procedure Tolerated Well #2 POSTERIOR RLE- CALF -Time 11:52 -Correct Patient Yes -Procedure Performed No -Post Debridement Size (cm) - Length 0 -Post Debridement Size (cm) - Width 0 -Post Debridement Size (cm) - Depth 0 -Total Square Cm 0 -Wound/Ulcer Outcome Healed- Epithelialized #1 POSTERIOR LLE -Time 11:49 -Correct Patient Yes -Correct Side, Site, Position Yes -Correct Procedure Yes -Procedure Performed Yes -Type of Procedure Debridement -Clinical Debridement Subcutaneous -Post Debridement Size (cm) - Length 6.0 -Post Debridement Size (cm) - Width 2.5 -Post Debridement Size (cm) - Depth 0.2 -Total Square Cm 15.00 -Wound/Ulcer Outcome Not Healed -Ulcer Cleansing Rinsed/ Irrigated with Saline -Foul Odor after Cleansing No -Bioengineered Tissue No -Expiration Date 10/16/19 -Product Lot Number [id number] -Percent Used 80 -Saline Lot Number [id number] -Bleeding Controlled with Pressure -Treatment Response Procedure Tolerated Well [See Physician Procedure note for Specifics] Pain Scale: 0-10 Numeric [Pain] -Is Patient Pain Free? Yes Musculoskeletal: No Muscle Wasting Neurological: Cranial nerves II-XII grossly intact Psych/Mental Status: Normal Affect Debridement Note Post-Debridement Measurements/Treatment WC - Nurse 2 - General Ulcer CM Notes Start: 03/18/18 10:42 Freq: Status: Active Protocol: Activity Type Activity Date Activity User E-Sign Co-Sign Detail Recorded Client Recorded Date Recorded By Document 03/18/18 11:45 DV [id number] 03/18/18 12:06 DV 03/18/18 11:45 Wound Center Nurse 2 #3 RIGHT KRISHNAN -Time 11:52 -Correct Patient Yes -Correct Side, Site, Position Yes -Correct Procedure Yes -Procedure Performed Yes -Type of Procedure Debridement -Clinical Debridement Subcutaneous -Post Debridement Size (cm) - Length 0.8 -Post Debridement Size (cm) - Width 0.4 -Post Debridement Size (cm) - Depth 0.2 -Total Square Cm 0.32 -Wound/Ulcer Outcome Not Healed -Ulcer Cleansing Rinsed/ Irrigated with Saline -Foul Odor after Cleansing No -Bioengineered Tissue Yes -Type of bioengineered Tissue [id number] -Expiration Date 10/16/19 -Product Lot Number [id number] -Percent Used 20 -Saline Lot Number [id number] -Bleeding Controlled with Pressure -Treatment Response Procedure Tolerated Well #2 POSTERIOR RLE- CALF -Time 11:52 -Correct Patient Yes -Procedure Performed No -Post Debridement Size (cm) - Length 0 -Post Debridement Size (cm) - Width 0 -Post Debridement Size (cm) - Depth 0 -Total Square Cm 0 -Wound/Ulcer Outcome Healed- Epithelialized #1 POSTERIOR LLE -Time 11:49 -Correct Patient Yes -Correct Side, Site, Position Yes -Correct Procedure Yes -Procedure Performed Yes -Type of Procedure Debridement -Clinical Debridement Subcutaneous -Post Debridement Size (cm) - Length 6.0 -Post Debridement Size (cm) - Width 2.5 -Post Debridement Size (cm) - Depth 0.2 -Total Square Cm 15.00 -Wound/Ulcer Outcome Not Healed -Ulcer Cleansing Rinsed/ Irrigated with Saline -Foul Odor after Cleansing No -Bioengineered Tissue No -Expiration Date 10/16/19 -Product Lot Number [id number] -Percent Used 80 -Saline Lot Number [id number] -Bleeding Controlled with Pressure -Treatment Response Procedure Tolerated Well Pain Scale: 0-10 Numeric Is Patient Pain Free? Yes Wound debrided: Left lower extremity ( posterior ) Wound Grade/Stage: Stage III Type of Debridement: Excisional debridement Anesthesia Used: 4% Lidocaine Solution Depth: Down to and including healthy tissue, in the subcutaneous layer Percentage of wound debrided: 100 Instrument Used: 7mm curette Tissue Removed: Slough and devitalized tisue Severity: Fat Layer Exposed Amount of bleeding with debridement: Mild Bleeding Controlled with: Pressure Patient tolerated procedure well - Additional Wound Wound debrided: Right Krishnan Wound Grade/Stage: Stage II Type of Debridement: Excisional debridement Anesthesia Used: 4% Lidocaine Solution Depth: Down to and including healthy tissue, in the subcutaneous layer Percentage of wound debrided: 100 Instrument Used: 5mm curette Tissue Removed: Slough and devitalized tissue Severity: Fat Layer Exposed Amount of bleeding with debridement: Mild Bleeding Controlled with: Pressure Patient tolerated procedure: Patient tolerated procedure well Assessment/Plan Assessment: Bilateral lower extremity ulcers with fat layer exposed. Chronic venous insufficiency. Chronic bilateral non healing wound. Congestive heart failure. Debility. Plan: Significant improvement in the past week. Debridement done as documented above, procedure was well tolerated. Second application of Purapply one today to both ulcers. Moistened with saline, covered with wound veil and secured with steristrips. Elevate lower extremity when sitted and in bed. Continue Tubi sushi chef for edema management. Due to debility and lack of good support system, patient will benefit from Home health. Increased protein intake and protein supplements recommeneded. Follow up in 1 week. This note was generated with [employer]ceation software. It may contain incorrect words, spelling, and punctuation that were not noted in checking the note before signing.
[2018-03-25 09:54] VITALS: BP 145/95; PULSE 80; RESP 18; TEMP 35.9
--- NOTE | 2018-03-25 16:42 | PCM.WC.PN ---
(1) Chronic venous insufficiency Status: Acute Current Visit: Yes Code(s): I87.2 - Venous insufficiency (chronic) (peripheral) (2) Ulcer of left lower extremity with fat layer exposed Status: Acute Current Visit: Yes Code(s): L97.922 - Non-pressure chronic ulcer of unspecified part of left lower leg with fat layer exposed (3) Ulcer of right lower extremity with fat layer exposed Status: Acute Current Visit: No Code(s): L97.912 - Non-pressure chronic ulcer of unspecified part of right lower leg with fat layer exposed Type of Wound Date of Service: 03/25/18 Chief Complaint: Bilateral lower extremity ulcers. History of Wound: Mr. Diaz presents here with an at least 8 month history of bilateral lower extremity ulcers. He is here with his son and they are unsure of the exact onset but believe it must have been presnt for at least 8 months.They are also not sure of the precipitating factor. He lives with his who is largely incapapcitated and is helped by Home health. He has not had any significant care to his ulcers. He denies any known history of DM or PAD. He follows up with his PCP by whom he was referred here. He feels wells otherwise and denies chills, fever, significant discharge from the wound, nausea, vomiting or any change inhis bowel habit. Progress of Wound: Old wound is improving however he returns with in the left lower extremity ulcers status post trauma. He feels well otherwise. - Physical Exam Vital Signs Temp Pulse Resp BP 96.7 F L 80 18 145/95 H 03/25/18 09:54 03/25/18 09:54 03/25/18 09:54 03/25/18 09:54 General: Alert, Oriented x3, Cooperative, No apparent distress HEENT: Atraumatic Oral: Moist Mucosa Neck: Supple Lungs: Normal air movement Extremities: No cyanosis, Edema Skin: Ulcer/ Wound Wound Measurements and Assessment WC - Nurse 1 - General Ulcer Measurement Start: 03/18/18 10:42 Freq: Status: Active Protocol: Activity Type Activity Date Activity User E-Sign Co-Sign Detail Recorded Client Recorded Date Recorded By Document 03/25/18 09:54 DL [id number] 03/25/18 10:11 DL 03/25/18 09:54 Wound Center Nurse 1 [Ulcer Assessment] #5 L Lower Med Leg -Current Size (cm) - Length 3 -Current Size (cm) - Width 2.4 -Current Size (cm) - Depth 0.1 -Total Square Cm 7.2 -Photo Taken Yes -Exudate Amt Small (1-33%) -Exudate Type Serosanguineous -Wound Margin Distinct, Outline Attached -Granulation Amt Large (67-100%) -Granulation Quality Red -Necrosis Amt None Present (0 %) -Structure Exposed N/A -Texture (Lydia-wound Skin Appearance) Localized Edema -Moisture (Lydia-wound Skin Appearance Dry/Scaly ) -Color (Lydia-wound Skin Appearance) Hemosiderin Staining -Temperature (Lydia-wound Skin No Abnormality Appearance) (Pt Warm) -Ulcer Cleansing Wound Cleanser -Foul Odor after Cleansing No -Anesthetic Used 4% Lidocaine Solution #3 RIGHT MCMANUS -Current Size (cm) - Length 0.5 -Current Size (cm) - Width 0.4 -Current Size (cm) - Depth 0.1 -Total Square Cm 0.20 -Photo Taken No -Exudate Amt None Present (0 %) -Wound Margin Thickened -Granulation Amt Small (1-33%) -Granulation Quality [place] -Necrosis Amt Small (1-33%) -Necrotic Tissue Type Adherent Slough -Structure Exposed N/A -Texture (Lydia-wound Skin Appearance) Localized Edema Scarring -Moisture (Lydia-wound Skin Appearance Dry/Scaly ) -Color (Lydia-wound Skin Appearance) Hemosiderin Staining -Temperature (Lydia-wound Skin No Abnormality Appearance) (Pt Warm) -Ulcer Cleansing Wound Cleanser -Foul Odor after Cleansing No -Anesthetic Used 4% Lidocaine Solution #1 POSTERIOR LLE -Current Size (cm) - Length 7 -Current Size (cm) - Width 2.2 -Current Size (cm) - Depth 0.2 -Total Square Cm 15.4 -Photo Taken No -Exudate Amt Large (67-100%) -Exudate Type Serosanguineous -Wound Margin Distinct, Outline Attached -Granulation Amt Small (1-33%) -Granulation Quality Red -Necrosis Amt Large (67-100%) -Necrotic Tissue Type Adherent Slough -Structure Exposed N/A -Texture (Lydia-wound Skin Appearance) Localized Edema -Moisture (Lydia-wound Skin Appearance Dry/Scaly ) -Color (Lydia-wound Skin Appearance) Erythema Hemosiderin Staining -Temperature (Lydia-wound Skin No Abnormality Appearance) (Pt Warm) -Ulcer Cleansing Wound Cleanser -Foul Odor after Cleansing No -Anesthetic Used 4% Lidocaine Solution [Edema Assessment] -Right Calf (cm) 31.6 -Right Ankle (cm) 21.2 -Left Calf (cm) 35.5 -Left Ankle (cm) 27 WC - Nurse 2 - General Ulcer CM Notes Start: 03/18/18 10:42 Freq: Status: Active Protocol: Activity Type Activity Date Activity User E-Sign Co-Sign Detail Recorded Client Recorded Date Recorded By Document 03/25/18 11:19 DV [id number] 03/25/18 11:36 DV 03/25/18 11:19 Wound Center Nurse 2 [Procedure/Treatment] #5 L Lower Med Leg -Time 11:22 -Correct Patient Yes -Correct Side, Site, Position Yes -Correct Procedure Yes -Procedure Performed Yes -Type of Procedure Debridement -Clinical Debridement Subcutaneous -Post Debridement Size (cm) - Length 3.0 -Post Debridement Size (cm) - Width 2.0 -Post Debridement Size (cm) - Depth 0.1 -Total Square Cm 6.00 -Wound/Ulcer Outcome Not Healed -Ulcer Cleansing Rinsed/ Irrigated with Saline -Foul Odor after Cleansing No -Bioengineered Tissue No -Expiration Date 10/16/19 -Product Lot Number [id number] -Percent Used 20 -Saline Lot Number [id number] -Topical Lidocaine (%) 4 -Bleeding Controlled with Pressure -Other WOUND VEIL, STERI STRIPS -Treatment Response Procedure Tolerated Well #3 RIGHT MCMANUS -Time 11:26 -Correct Patient Yes -Procedure Performed No -Post Debridement Size (cm) - Length 0 -Post Debridement Size (cm) - Width 0 -Post Debridement Size (cm) - Depth 0 -Total Square Cm 0 -Wound/Ulcer Outcome Healed- Epithelialized #1 POSTERIOR LLE -Time 11:20 -Correct Patient Yes -Correct Side, Site, Position Yes -Correct Procedure Yes -Procedure Performed Yes -Type of Procedure Debridement -Clinical Debridement Subcutaneous -Post Debridement Size (cm) - Length 6.5 -Post Debridement Size (cm) - Width 2.6 -Post Debridement Size (cm) - Depth 0.3 -Total Square Cm 16.90 -Wound/Ulcer Outcome Not Healed -Ulcer Cleansing Rinsed/ Irrigated with Saline -Foul Odor after Cleansing No -Bioengineered Tissue Yes -Type of bioengineered Tissue [id number] -Expiration Date 10/16/19 -Product Lot Number [id number] -Percent Used 80 -Saline Lot Number [id number] -Topical Lidocaine (%) 4 -Bleeding Controlled with Pressure -Other WOUND VEIL, STERI STRIPS -Treatment Response Procedure Tolerated Well [See Physician Procedure note for Specifics] Musculoskeletal: No Muscle Wasting Neurological: Cranial nerves II-XII grossly intact Psych/Mental Status: Normal Affect Debridement Note Post-Debridement Measurements/Treatment WC - Nurse 2 - General Ulcer CM Notes Start: 03/18/18 10:42 Freq: Status: Active Protocol: Activity Type Activity Date Activity User E-Sign Co-Sign Detail Recorded Client Recorded Date Recorded By Document 03/18/18 11:45 DV [id number] 03/18/18 12:06 DV Document 03/25/18 11:19 DV [id number] 03/25/18 11:36 DV 03/18/18 03/25/18 11:45 11:19 Wound Center Nurse 2 #5 L Lower Med Leg -Time 11:22 -Correct Patient Yes -Correct Side, Site, Position Yes -Correct Procedure Yes -Procedure Performed Yes -Type of Procedure Debridement -Clinical Debridement Subcutaneous -Post Debridement Size (cm) - Length 3.0 -Post Debridement Size (cm) - Width 2.0 -Post Debridement Size (cm) - Depth 0.1 -Total Square Cm 6.00 -Wound/Ulcer Outcome Not Healed -Ulcer Cleansing Rinsed/ Irrigated with Saline -Foul Odor after Cleansing No -Bioengineered Tissue No -Expiration Date 10/16/19 -Product Lot Number [id number] -Percent Used 20 -Saline Lot Number [id number] -Topical Lidocaine (%) 4 -Bleeding Controlled with Pressure -Other WOUND VEIL, STERI STRIPS -Treatment Response Procedure Tolerated Well #3 RIGHT MCMANUS -Time 11:52 11:26 -Correct Patient Yes Yes -Correct Side, Site, Position Yes -Correct Procedure Yes -Procedure Performed Yes No -Type of Procedure Debridement -Clinical Debridement Subcutaneous -Post Debridement Size (cm) - Length 0.8 0 -Post Debridement Size (cm) - Width 0.4 0 -Post Debridement Size (cm) - Depth 0.2 0 -Total Square Cm 0.32 0 -Wound/Ulcer Outcome Not Healed Healed- Epithelialized -Ulcer Cleansing Rinsed/ Irrigated with Saline -Foul Odor after Cleansing No -Bioengineered Tissue Yes -Type of bioengineered Tissue [id number] -Expiration Date 10/16/19 -Product Lot Number [id number] -Percent Used 20 -Saline Lot Number [id number] -Bleeding Controlled with Pressure -Treatment Response Procedure Tolerated Well #2 POSTERIOR RLE- CALF -Time 11:52 -Correct Patient Yes -Procedure Performed No -Post Debridement Size (cm) - Length 0 -Post Debridement Size (cm) - Width 0 -Post Debridement Size (cm) - Depth 0 -Total Square Cm 0 -Wound/Ulcer Outcome Healed- Epithelialized #1 POSTERIOR LLE -Time 11:49 11:20 -Correct Patient Yes Yes -Correct Side, Site, Position Yes Yes -Correct Procedure Yes Yes -Procedure Performed Yes Yes -Type of Procedure Debridement Debridement -Clinical Debridement Subcutaneous Subcutaneous -Post Debridement Size (cm) - Length 6.0 6.5 -Post Debridement Size (cm) - Width 2.5 2.6 -Post Debridement Size (cm) - Depth 0.2 0.3 -Total Square Cm 15.00 16.90 -Wound/Ulcer Outcome Not Healed Not Healed -Ulcer Cleansing Rinsed/ Rinsed/ Irrigated with Irrigated with Saline Saline -Foul Odor after Cleansing No No -Bioengineered Tissue No Yes -Type of bioengineered Tissue [id number] -Expiration Date 10/16/19 10/16/19 -Product Lot Number [id number] -Percent Used 80 80 -Saline Lot Number [id number] -Topical Lidocaine (%) 4 -Bleeding Controlled with Pressure Pressure -Other WOUND VEIL, STERI STRIPS -Treatment Response Procedure Procedure Tolerated Well Tolerated Well Pain Scale: 0-10 Numeric Is Patient Pain Free? Yes Wound debrided: Left lower extremity ( Posterior ) Wound Grade/Stage: Stage III Anesthesia Used: 4% Lidocaine Solution Depth: Down to and including healthy tissue, in the subcutaneous layer Percentage of wound debrided: 100 Instrument Used: 7mm curette Tissue Removed: SLough and devitalized tissue Severity: Fat Layer Exposed Amount of bleeding with debridement: Mild Bleeding Controlled with: Pressure Patient tolerated procedure well - Additional Wound Wound debrided: Left lower extremity (medial ) Wound Grade/Stage: Stage II Type of Debridement: Excisional debridement Anesthesia Used: 4% Lidocaine Solution Depth: Down to and including healthy tissue Percentage of wound debrided: 100 Instrument Used: 5mm curette Tissue Removed: Biofilm and devitalized tissue Severity: Limited To Skin Breakdown Amount of bleeding with debridement: None Patient tolerated procedure: Patient tolerated procedure well Assessment/Plan Active Problems Ulcer of left lower extremity with fat layer exposed (Acute) Chronic venous insufficiency (Acute) Assessment: Bilateral lower extremity ulcers with fat layer exposed. Chronic venous insufficiency. Chronic bilateral non healing wound. Congestive heart failure. Debility. Plan: Stable old ulcer with better granulation tissue. New left lower extremity medial ulcer status post trauma. Right lower extremity ulcers have pretty much healed. Debridement done as documented above, procedure was well tolerated. 3rd application of Purapply done today to both ulcers. Moistened with saline, covered with wound veil and secured with steristrips. Elevate lower extremity when sitted and in bed. 3M wraps for edema management. I believe patient will benefit from a skin substitute for continued wound healing. Due to debility and lack of good support system, patient will benefit from Home health. Increased protein intake and protein supplements recommeneded. Follow up in 2 weeks. This note was generated with [employer] dictation software. It may contain incorrect words, spelling, and punctuation that were not noted in checking the note before signing.
--- NOTE | 2018-03-25 16:49 | PN.PCM_ITS ---
(1) Chronic venous insufficiency Status: Acute Current Visit: Yes Code(s): I87.2 - Venous insufficiency ( chronic) (peripheral) (2) Ulcer of left lower extremity with fat layer exposed Status: Acute Current Visit: Yes Code(s): L97.922 - Non-pressure chronic ulcer of unspecified part of left lower leg with fat layer exposed (3) Ulcer of right lower extremity with fat layer exposed Status: Acute Current Visit: No Code(s): L97.912 - Non-pressure chronic ulcer of unspecified part of right lower leg with fat layer exposed Type of Wound Date of Service: 03/25/18 Chief Complaint: Bilateral lower extremity ulcers. History of Wound: Mr. Diaz presents here with an at least 8 month history of bilateral lower extremity ulcers. He is here with his son and they are unsure of the exact onset but believe it must have been presnt for at least 8 months.They are also not sure of the precipitating factor. He lives with his who is largely incapapcitated and is helped by Home health. He has not had any significant care to his ulcers. He denies any known history of DM or PAD. He follows up with his PCP by whom he was referred here. He feels wells otherwise and denies chills, fever, significant discharge from the wound, nausea , vomiting or any change inhis bowel habit. Progress of Wound: Old wound is improving however he returns with in the left lower extremity ulcers status post trauma. He feels well otherwise. - Physical Exam Vital Signs Temp Pulse Resp BP 96.7 F L 80 18 145/95 H 03/25/18 09:54 03/25/18 09:54 03/25/18 09:54 03/25/18 09:54 General: Alert, Oriented x3, Cooperative, No apparent distress HEENT: Atraumatic Oral: Moist Mucosa Neck: Supple Lungs: Normal air movement Extremities: No cyanosis, Edema Skin: Ulcer/ Wound Wound Measurements and Assessment WC - Nurse 1 - General Ulcer Measurement Start: 03/18/18 10:42 Freq: Status: Active Protocol: Activity Type Activity Date Activity User E-Sign Co-Sign Detail Recorded Client Recorded Date Recorded By Document 03/25/18 09:54 DL [id number] 03/25/18 10:11 DL 03/25/18 09:54 Wound Center Nurse 1 [Ulcer Assessment] #5 L Lower Med Leg -Current Size (cm) - Length 3 -Current Size (cm) - Width 2.4 -Current Size (cm) - Depth 0.1 -Total Square Cm 7.2 -Photo Taken Yes -Exudate Amt Small (1-33%) -Exudate Type Serosanguineous -Wound Margin Distinct, Outline Attached -Granulation Amt Large (67-100%) -Granulation Quality Red -Necrosis Amt None Present (0 %) -Structure Exposed N/A -Texture (Lydia-wound Skin Appearance) Localized Edema -Moisture (Lydia-wound Skin Appearance Dry/Scaly ) -Color (Lydia-wound Skin Appearance) Hemosiderin Staining -Temperature (Lydia-wound Skin No Abnormality Appearance) (Pt Warm) -Ulcer Cleansing Wound Cleanser -Foul Odor after Cleansing No -Anesthetic Used 4% Lidocaine Solution #3 RIGHT MCMANUS -Current Size (cm) - Length 0.5 -Current Size (cm) - Width 0.4 -Current Size (cm) - Depth 0.1 -Total Square Cm 0.20 -Photo Taken No -Exudate Amt None Present (0 %) -Wound Margin Thickened -Granulation Amt Small (1-33%) -Granulation Quality [place] -Necrosis Amt Small (1-33%) -Necrotic Tissue Type Adherent Slough -Structure Exposed N/A -Texture (Lydia-wound Skin Appearance) Localized Edema Scarring -Moisture (Lydia-wound Skin Appearance Dry/Scaly ) -Color (Lydia-wound Skin Appearance) Hemosiderin Staining -Temperature (Lydia-wound Skin No Abnormality Appearance) (Pt Warm) -Ulcer Cleansing Wound Cleanser -Foul Odor after Cleansing No -Anesthetic Used 4% Lidocaine Solution #1 POSTERIOR LLE -Current Size (cm) - Length 7 -Current Size (cm) - Width 2.2 -Current Size (cm) - Depth 0.2 -Total Square Cm 15.4 -Photo Taken No -Exudate Amt Large (67-100%) -Exudate Type Serosanguineous -Wound Margin Distinct, Outline Attached -Granulation Amt Small (1-33%) -Granulation Quality Red -Necrosis Amt Large (67-100%) -Necrotic Tissue Type Adherent Slough -Structure Exposed N/A -Texture (Lydia-wound Skin Appearance) Localized Edema -Moisture (Lydia-wound Skin Appearance Dry/Scaly ) -Color (Lydia-wound Skin Appearance) Erythema Hemosiderin Staining -Temperature (Lydia-wound Skin No Abnormality Appearance) (Pt Warm) -Ulcer Cleansing Wound Cleanser -Foul Odor after Cleansing No -Anesthetic Used 4% Lidocaine Solution [Edema Assessment] -Right Calf (cm) 31.6 -Right Ankle (cm) 21.2 -Left Calf (cm) 35.5 -Left Ankle (cm) 27 WC - Nurse 2 - General Ulcer CM Notes Start: 03/18/18 10:42 Freq: Status: Active Protocol: Activity Type Activity Date Activity User E-Sign Co-Sign Detail Recorded Client Recorded Date Recorded By Document 03/25/18 11:19 DV [id number] 03/25/18 11:36 DV 03/25/18 11:19 Wound Center Nurse 2 [Procedure/Treatment] #5 L Lower Med Leg -Time 11:22 -Correct Patient Yes -Correct Side, Site, Position Yes -Correct Procedure Yes -Procedure Performed Yes -Type of Procedure Debridement -Clinical Debridement Subcutaneous -Post Debridement Size (cm) - Length 3.0 -Post Debridement Size (cm) - Width 2.0 -Post Debridement Size (cm) - Depth 0.1 -Total Square Cm 6.00 -Wound/Ulcer Outcome Not Healed -Ulcer Cleansing Rinsed/ Irrigated with Saline -Foul Odor after Cleansing No -Bioengineered Tissue No -Expiration Date 10/16/19 -Product Lot Number [id number] -Percent Used 20 -Saline Lot Number [id number] -Topical Lidocaine (%) 4 -Bleeding Controlled with Pressure -Other WOUND VEIL, STERI STRIPS -Treatment Response Procedure Tolerated Well #3 RIGHT MCMANUS -Time 11:26 -Correct Patient Yes -Procedure Performed No -Post Debridement Size (cm) - Length 0 -Post Debridement Size (cm) - Width 0 -Post Debridement Size (cm) - Depth 0 -Total Square Cm 0 -Wound/Ulcer Outcome Healed- Epithelialized #1 POSTERIOR LLE -Time 11:20 -Correct Patient Yes -Correct Side, Site, Position Yes -Correct Procedure Yes -Procedure Performed Yes -Type of Procedure Debridement -Clinical Debridement Subcutaneous -Post Debridement Size (cm) - Length 6.5 -Post Debridement Size (cm) - Width 2.6 -Post Debridement Size (cm) - Depth 0.3 -Total Square Cm 16.90 -Wound/Ulcer Outcome Not Healed -Ulcer Cleansing Rinsed/ Irrigated with Saline -Foul Odor after Cleansing No -Bioengineered Tissue Yes -Type of bioengineered Tissue [id number] -Expiration Date 10/16/19 -Product Lot Number [id number] -Percent Used 80 -Saline Lot Number [id number] -Topical Lidocaine (%) 4 -Bleeding Controlled with Pressure -Other WOUND VEIL, STERI STRIPS -Treatment Response Procedure Tolerated Well [See Physician Procedure note for Specifics] Musculoskeletal: No Muscle Wasting Neurological: Cranial nerves II-XII grossly intact Psych/Mental Status: Normal Affect Debridement Note Post-Debridement Measurements/Treatment WC - Nurse 2 - General Ulcer CM Notes Start: 03/18/18 10:42 Freq: Status: Active Protocol: Activity Type Activity Date Activity User E-Sign Co-Sign Detail Recorded Client Recorded Date Recorded By Document 03/18/18 11:45 DV [id number] 03/18/18 12:06 DV Document 03/25/18 11:19 DV [id number] 03/25/18 11:36 DV 03/18/18 03/25/18 11:45 11:19 Wound Center Nurse 2 #5 L Lower Med Leg -Time 11:22 -Correct Patient Yes -Correct Side, Site, Position Yes -Correct Procedure Yes -Procedure Performed Yes -Type of Procedure Debridement -Clinical Debridement Subcutaneous -Post Debridement Size (cm) - Length 3.0 -Post Debridement Size (cm) - Width 2.0 -Post Debridement Size (cm) - Depth 0.1 -Total Square Cm 6.00 -Wound/Ulcer Outcome Not Healed -Ulcer Cleansing Rinsed/ Irrigated with Saline -Foul Odor after Cleansing No -Bioengineered Tissue No -Expiration Date 10/16/19 -Product Lot Number [id number] -Percent Used 20 -Saline Lot Number [id number] -Topical Lidocaine (%) 4 -Bleeding Controlled with Pressure -Other WOUND VEIL, STERI STRIPS -Treatment Response Procedure Tolerated Well #3 RIGHT MCMANUS -Time 11:52 11:26 -Correct Patient Yes Yes -Correct Side, Site, Position Yes -Correct Procedure Yes -Procedure Performed Yes No -Type of Procedure Debridement -Clinical Debridement Subcutaneous -Post Debridement Size (cm) - Length 0.8 0 -Post Debridement Size (cm) - Width 0.4 0 -Post Debridement Size (cm) - Depth 0.2 0 -Total Square Cm 0.32 0 -Wound/Ulcer Outcome Not Healed Healed- Epithelialized -Ulcer Cleansing Rinsed/ Irrigated with Saline -Foul Odor after Cleansing No -Bioengineered Tissue Yes -Type of bioengineered Tissue [id number] -Expiration Date 10/16/19 -Product Lot Number [id number] -Percent Used 20 -Saline Lot Number [id number] -Bleeding Controlled with Pressure -Treatment Response Procedure Tolerated Well #2 POSTERIOR RLE- CALF -Time 11:52 -Correct Patient Yes -Procedure Performed No -Post Debridement Size (cm) - Length 0 -Post Debridement Size (cm) - Width 0 -Post Debridement Size (cm) - Depth 0 -Total Square Cm 0 -Wound/Ulcer Outcome Healed- Epithelialized #1 POSTERIOR LLE -Time 11:49 11:20 -Correct Patient Yes Yes -Correct Side, Site, Position Yes Yes -Correct Procedure Yes Yes -Procedure Performed Yes Yes -Type of Procedure Debridement Debridement -Clinical Debridement Subcutaneous Subcutaneous -Post Debridement Size (cm) - Length 6.0 6.5 -Post Debridement Size (cm) - Width 2.5 2.6 -Post Debridement Size (cm) - Depth 0.2 0.3 -Total Square Cm 15.00 16.90 -Wound/Ulcer Outcome Not Healed Not Healed -Ulcer Cleansing Rinsed/ Rinsed/ Irrigated with Irrigated with Saline Saline -Foul Odor after Cleansing No No -Bioengineered Tissue No Yes -Type of bioengineered Tissue [id number] -Expiration Date 10/16/19 10/16/19 -Product Lot Number [id number] -Percent Used 80 80 -Saline Lot Number [id number] -Topical Lidocaine (%) 4 -Bleeding Controlled with Pressure Pressure -Other WOUND VEIL, STERI STRIPS -Treatment Response Procedure Procedure Tolerated Well Tolerated Well Pain Scale: 0-10 Numeric Is Patient Pain Free? Yes Wound debrided: Left lower extremity ( Posterior ) Wound Grade/Stage: Stage III Anesthesia Used: 4% Lidocaine Solution Depth: Down to and including healthy tissue, in the subcutaneous layer Percentage of wound debrided: 100 Instrument Used: 7mm curette Tissue Removed: SLough and devitalized tissue Severity: Fat Layer Exposed Amount of bleeding with debridement: Mild Bleeding Controlled with: Pressure Patient tolerated procedure well - Additional Wound Wound debrided: Left lower extremity (medial ) Wound Grade/Stage: Stage II Type of Debridement: Excisional debridement Anesthesia Used: 4% Lidocaine Solution Depth: Down to and including healthy tissue Percentage of wound debrided: 100 Instrument Used: 5mm curette Tissue Removed: Biofilm and devitalized tissue Severity: Limited To Skin Breakdown Amount of bleeding with debridement: None Patient tolerated procedure: Patient tolerated procedure well Assessment/Plan Active Problems Ulcer of left lower extremity with fat layer exposed (Acute) Chronic venous insufficiency (Acute) Assessment: Bilateral lower extremity ulcers with fat layer exposed. Chronic venous insufficiency. Chronic bilateral non healing wound. Congestive heart failure. Debility. Plan: Stable old ulcer with better granulation tissue. New left lower extremity medial ulcer status post trauma. Right lower extremity ulcers have pretty much healed. Debridement done as documented above, procedure was well tolerated. 3rd application of Purapply done today to both ulcers. Moistened with saline, covered with wound veil and secured with steristrips. Elevate lower extremity when sitted and in bed. 3M wraps for edema management. I believe patient will benefit from a skin substitute for continued wound healing. Due to debility and lack of good support system, patient will benefit from Home health. Increased protein intake and protein supplements recommeneded. Follow up in 2 weeks. This note was generated with [employer] dictation software. It may contain incorrect words, spelling, and punctuation that were not noted in checking the note before signing.
== END 2018-04-03 23:59 ==
LOC: WC 09:00
PROVIDERS: Family Provider Family Medicine; PCP Family Medicine; Visit Provider Internal Medicine
DX: I87.2 Venous insufficiency (chronic) (peripheral) (principal); L97.822 Non-pressure chronic ulcer of other part of left lower leg with fat layer exposed; L97.812 Non-pressure chronic ulcer of other part of right lower leg with fat layer exposed; I50.9 Heart failure, unspecified
CPT/HCPCS: 15271; 29581; 99211; Q4172; G0463

== ENCOUNTER 2018-04-29 11:00 | Outpatient (RCR) | payer MEDICARE, OTHER, SELFPAY ==
[2018-04-04 01:04] VITALS: BP 145/95; PULSE 80; RESP 18; TEMP 35.9
[2018-04-08 08:56] VITALS: BP 142/55; PULSE 66; RESP 18; TEMP 36.4
--- NOTE | 2018-04-08 09:37 | PCM.WC.PN ---
(1) Chronic venous insufficiency Status: Acute Current Visit: No Code(s): I87.2 - Venous insufficiency (chronic) (peripheral) (2) Non-healing ulcer Status: Acute Current Visit: No Code(s): L98.499 - Non-pressure chronic ulcer of skin of other sites with unspecified severity (3) Ulcer of right lower extremity with fat layer exposed Status: Acute Current Visit: No Code(s): L97.912 - Non-pressure chronic ulcer of unspecified part of right lower leg with fat layer exposed Type of Wound Date of Service: 04/08/18 Chief Complaint: Bilateral lower extremity ulcers. History of Wound: Mr. Diaz presents here with an at least 8 month history of bilateral lower extremity ulcers. He is here with his son and they are unsure of the exact onset but believe it must have been presnt for at least 8 months.They are also not sure of the precipitating factor. He lives with his who is largely incapapcitated and is helped by Home health. He has not had any significant care to his ulcers. He denies any known history of DM or PAD. He follows up with his PCP by whom he was referred here. He feels wells otherwise and denies chills, fever, significant discharge from the wound, nausea, vomiting or any change inhis bowel habit. Progress of Wound: Continued improvement of left posterior wound however, now presents with a new left lower extremity wound/ skin tear. - Physical Exam Vital Signs Temp Pulse Resp BP 97.5 F L 66 18 142/55 H 04/08/18 08:56 04/08/18 08:56 04/08/18 08:56 04/08/18 08:56 General: Alert, Oriented x3, Cooperative, No apparent distress HEENT: Atraumatic Oral: Moist Mucosa Neck: Supple Lungs: Normal air movement Abdomen: Non Tender Extremities: No cyanosis, Edema Skin: Ulcer/ Wound Wound Measurements and Assessment WC - Nurse 1 - General Ulcer Measurement Start: 04/08/18 08:56 Freq: Status: Active Protocol: Activity Type Activity Date Activity User E-Sign Co-Sign Detail Recorded Client Recorded Date Recorded By Document 04/08/18 08:56 WENDI [id number] 04/08/18 09:00 WENDI 04/08/18 08:56 Wound Center Nurse 1 [Ulcer Assessment] #5 L Lower Med Leg -Combined with other wound No -Current Size (cm) - Length 0.1 -Current Size (cm) - Width 0.1 -Current Size (cm) - Depth 0.1 -Total Square Cm 0.01 -Tunneling No -Undermining/Tunneling No -Circular Undermining No -Exudate Amt None Present (0 %) -Wound Margin Flat & Intact -Granulation Amt None Present (0 %) -Slough/Fibrin Yes -Necrosis Amt Large (67-100%) -Necrotic Tissue Type Adherent Slough -Structure Exposed N/A -Texture (Lydia-wound Skin Appearance) Assessed Localized Edema -Moisture (Lydia-wound Skin Appearance Assessed ) Dry/Scaly -Color (Lydia-wound Skin Appearance) Assessed -Temperature (Lydia-wound Skin No Abnormality Appearance) (Pt Warm) -Tenderness on Palpation (Lydia-wound No Skin Appearance) -Ulcer Cleansing Wound Cleanser -Foul Odor after Cleansing No -Anesthetic Used 5% Lidocaine Gel #2 POSTERIOR RLE- CALF -Combined with other wound No -Current Size (cm) - Length 0 -Current Size (cm) - Width 0 -Current Size (cm) - Depth 0 -Total Square Cm 0 -Photo Taken Yes -Epithelialization Large 67-100% #1 POSTERIOR LLE -Combined with other wound No -Current Size (cm) - Length 6.2 -Current Size (cm) - Width 1.5 -Current Size (cm) - Depth 0.1 -Total Square Cm 9.30 -Photo Taken No -Epithelialization Medium 34-66% -Tunneling No -Undermining/Tunneling No -Circular Undermining No -Exudate Amt Small (1-33%) -Exudate Type Serosanguineous -Wound Margin Flat & Intact -Granulation Amt Medium (34-66%) -Granulation Quality [place] -Slough/Fibrin Yes -Necrosis Amt Medium (34-66%) -Necrotic Tissue Type Adherent Slough -Structure Exposed N/A -Texture (Lydia-wound Skin Appearance) Assessed Localized Edema Scarring -Moisture (Lydia-wound Skin Appearance Assessed ) Dry/Scaly -Color (Lydia-wound Skin Appearance) Assessed Hemosiderin Staining -Temperature (Lydia-wound Skin No Abnormality Appearance) (Pt Warm) -Tenderness on Palpation (Lydia-wound No Skin Appearance) -Ulcer Cleansing Wound Cleanser -Foul Odor after Cleansing No -Anesthetic Used 5% Lidocaine Gel [Edema Assessment] -Lower Limb Edema Present Yes -Right Calf (cm) 30.0 -Right Ankle (cm) 21.8 -Left Calf (cm) 31.7 -Left Ankle (cm) 26.5 WC - Nurse 2 - General Ulcer CM Notes Start: 04/08/18 08:56 Freq: Status: Active Protocol: Activity Type Activity Date Activity User E-Sign Co-Sign Detail Recorded Client Recorded Date Recorded By Document 04/08/18 09:08 VERNA [id number] 04/08/18 09:25 VERNA 04/08/18 09:08 Wound Center Nurse 2 [Procedure/Treatment] #5 L Lower Med Leg -Time 09:09 -Correct Patient Yes -Correct Side, Site, Position Yes -Correct Procedure Yes -Procedure Performed Yes -Type of Procedure Debridement -Clinical Debridement Subcutaneous -Post Debridement Size (cm) - Length 3.2 -Post Debridement Size (cm) - Width 2.0 -Post Debridement Size (cm) - Depth 0.2 -Total Square Cm 6.40 -Wound/Ulcer Outcome Not Healed -Ulcer Cleansing Rinsed/ Irrigated with Saline -Foul Odor after Cleansing No -Type of bioengineered Tissue [id number] -Expiration Date 11/14/19 -Product Lot Number [id number] -Percent Used 100 -Saline Lot Number [id number] -Topical Lidocaine (%) 5 -Bleeding Controlled with NA -Treatment Response Procedure Tolerated Well #2 POSTERIOR RLE- CALF -Time 09:18 #1 POSTERIOR LLE -Time 09:18 -Correct Patient Yes -Correct Side, Site, Position Yes -Correct Procedure Yes -Procedure Performed Yes -Type of Procedure Debridement -Clinical Debridement Subcutaneous -Post Debridement Size (cm) - Length 3.2 -Post Debridement Size (cm) - Width 2.0 -Post Debridement Size (cm) - Depth 0.2 -Total Square Cm 6.40 -Wound/Ulcer Outcome Not Healed -Ulcer Cleansing Rinsed/ Irrigated with Saline -Foul Odor after Cleansing No -Bioengineered Tissue Yes -Type of bioengineered Tissue [id number] -Expiration Date 11/14/19 -Product Lot Number [id number] -Percent Used 100 -Saline Lot Number [id number] -Topical Lidocaine (%) 5 -Bleeding Controlled with NA -Treatment Response Procedure Tolerated Well [See Physician Procedure note for Specifics] Pain Scale: 0-10 Numeric [Pain] -Is Patient Pain Free? Yes Musculoskeletal: No Muscle Wasting Neurological: Cranial nerves II-XII grossly intact Psych/Mental Status: Normal Affect Debridement Note Post-Debridement Measurements/Treatment WC - Nurse 2 - General Ulcer CM Notes Start: 04/08/18 08:56 Freq: Status: Active Protocol: Activity Type Activity Date Activity User E-Sign Co-Sign Detail Recorded Client Recorded Date Recorded By Document 04/08/18 09:08 [id number] 04/08/18 09:25 VERNA 04/08/18 09:08 Wound Center Nurse 2 #5 L Lower Med Leg -Time 09:09 -Correct Patient Yes -Correct Side, Site, Position Yes -Correct Procedure Yes -Procedure Performed Yes -Type of Procedure Debridement -Clinical Debridement Subcutaneous -Post Debridement Size (cm) - Length 3.2 -Post Debridement Size (cm) - Width 2.0 -Post Debridement Size (cm) - Depth 0.2 -Total Square Cm 6.40 -Wound/Ulcer Outcome Not Healed -Ulcer Cleansing Rinsed/ Irrigated with Saline -Foul Odor after Cleansing No -Type of bioengineered Tissue [id number] -Expiration Date 11/14/19 -Product Lot Number [id number] -Percent Used 100 -Saline Lot Number [id number] -Topical Lidocaine (%) 5 -Bleeding Controlled with NA -Treatment Response Procedure Tolerated Well #2 POSTERIOR RLE- CALF -Time 09:18 #1 POSTERIOR LLE -Time 09:18 -Correct Patient Yes -Correct Side, Site, Position Yes -Correct Procedure Yes -Procedure Performed Yes -Type of Procedure Debridement -Clinical Debridement Subcutaneous -Post Debridement Size (cm) - Length 3.2 -Post Debridement Size (cm) - Width 2.0 -Post Debridement Size (cm) - Depth 0.2 -Total Square Cm 6.40 -Wound/Ulcer Outcome Not Healed -Ulcer Cleansing Rinsed/ Irrigated with Saline -Foul Odor after Cleansing No -Bioengineered Tissue Yes -Type of bioengineered Tissue [id number] -Expiration Date 11/14/19 -Product Lot Number [id number] -Percent Used 100 -Saline Lot Number [id number] -Topical Lidocaine (%) 5 -Bleeding Controlled with NA -Treatment Response Procedure Tolerated Well Pain Scale: 0-10 Numeric Is Patient Pain Free? Yes Wound debrided: Left lower extremity calf ( Superior ) Wound Grade/Stage: Stage III Type of Debridement: Excisional debridement Anesthesia Used: 4% Lidocaine Solution Depth: Down to and including healthy tissue, in the subcutaneous layer Percentage of wound debrided: 100 Instrument Used: 5mm curette Tissue Removed: Slough and devitalized tissue Severity: Fat Layer Exposed Amount of bleeding with debridement: Mild Bleeding Controlled with: Pressure Patient tolerated procedure well - Additional Wound Wound debrided: Left lower extremity calf ( Inferior ) Wound Grade/Stage: Stage II Type of Debridement: Excisional debridement Anesthesia Used: 4% Lidocaine Solution Depth: Down to and including healthy tissue, in the subcutaneous layer Percentage of wound debrided: 100 Instrument Used: 5mm curette Tissue Removed: Slough and devitalized tissue Severity: Fat Layer Exposed Amount of bleeding with debridement: Mild Bleeding Controlled with: Pressure Patient tolerated procedure: Patient tolerated procedure well - Additional Wound Wound debrided: Left lower extremity calf ( Lateral Skin tear ) Wound Grade/Stage: Stage I Type of Debridement: Excisional debridement Anesthesia Used: 4% Lidocaine Solution Depth: Down to and including healthy tissue Percentage of wound debrided: 100 Instrument Used: 5mm curette Tissue Removed: DEvitalized tissue Severity: Limited To Skin Breakdown Amount of bleeding with debridement: Mild Bleeding Controlled with: Compression and gauze Patient tolerated procedure: Patient tolerated procedure well Assessment/Plan Assessment: Bilateral lower extremity ulcers with fat layer exposed. ( Right lower extremity healed ). Chronic venous insufficiency. Chronic bilateral non healing wound. Congestive heart failure. Debility. Plan: Improving old ulcers. Debridement done as documented above, procedure was well tolerated. 4th application of Purapply done today to both ulcers. Moistened with saline, covered with wound veil and secured with steristrips. Elevate lower extremity when sitted and in bed. 3M wraps for edema management. I believe patient may benefit from a skin substitute for continued wound healing. Continued increased protein intake and protein supplements recommeneded. Follow up in 1 week. This note was generated with [employer] dictation software. It may contain incorrect words, spelling, and punctuation that were not noted in checking the note before signing.
--- NOTE | 2018-04-08 09:43 | PN.PCM_ITS ---
(1) Chronic venous insufficiency Status: Acute Current Visit: No Code(s): I87.2 - Venous insufficiency ( chronic) (peripheral) (2) Non-healing ulcer Status: Acute Current Visit: No Code(s): L98.499 - Non-pressure chronic ulcer of skin of other sites with unspecified severity (3) Ulcer of right lower extremity with fat layer exposed Status: Acute Current Visit: No Code(s): L97.912 - Non-pressure chronic ulcer of unspecified part of right lower leg with fat layer exposed Type of Wound Date of Service: 04/08/18 Chief Complaint: Bilateral lower extremity ulcers. History of Wound: Mr. Diaz presents here with an at least 8 month history of bilateral lower extremity ulcers. He is here with his son and they are unsure of the exact onset but believe it must have been presnt for at least 8 months.They are also not sure of the precipitating factor. He lives with his who is largely incapapcitated and is helped by Home health. He has not had any significant care to his ulcers. He denies any known history of DM or PAD. He follows up with his PCP by whom he was referred here. He feels wells otherwise and denies chills, fever, significant discharge from the wound, nausea , vomiting or any change inhis bowel habit. Progress of Wound: Continued improvement of left posterior wound however, now presents with a new left lower extremity wound/ skin tear. - Physical Exam Vital Signs Temp Pulse Resp BP 97.5 F L 66 18 142/55 H 04/08/18 08:56 04/08/18 08:56 04/08/18 08:56 04/08/18 08:56 General: Alert, Oriented x3, Cooperative, No apparent distress HEENT: Atraumatic Oral: Moist Mucosa Neck: Supple Lungs: Normal air movement Abdomen: Non Tender Extremities: No cyanosis, Edema Skin: Ulcer/ Wound Wound Measurements and Assessment WC - Nurse 1 - General Ulcer Measurement Start: 04/08/18 08:56 Freq: Status: Active Protocol: Activity Type Activity Date Activity User E-Sign Co-Sign Detail Recorded Client Recorded Date Recorded By Document 04/08/18 08:56 WENDI [id number] 04/08/18 09:00 WENDI 04/08/18 08:56 Wound Center Nurse 1 [Ulcer Assessment] #5 L Lower Med Leg -Combined with other wound No -Current Size (cm) - Length 0.1 -Current Size (cm) - Width 0.1 -Current Size (cm) - Depth 0.1 -Total Square Cm 0.01 -Tunneling No -Undermining/Tunneling No -Circular Undermining No -Exudate Amt None Present (0 %) -Wound Margin Flat & Intact -Granulation Amt None Present (0 %) -Slough/Fibrin Yes -Necrosis Amt Large (67-100%) -Necrotic Tissue Type Adherent Slough -Structure Exposed N/A -Texture (Lydia-wound Skin Appearance) Assessed Localized Edema -Moisture (Lydia-wound Skin Appearance Assessed ) Dry/Scaly -Color (Lydia-wound Skin Appearance) Assessed -Temperature (Lydia-wound Skin No Abnormality Appearance) (Pt Warm) -Tenderness on Palpation (Lydia-wound No Skin Appearance) -Ulcer Cleansing Wound Cleanser -Foul Odor after Cleansing No -Anesthetic Used 5% Lidocaine Gel #2 POSTERIOR RLE- CALF -Combined with other wound No -Current Size (cm) - Length 0 -Current Size (cm) - Width 0 -Current Size (cm) - Depth 0 -Total Square Cm 0 -Photo Taken Yes -Epithelialization Large 67-100% #1 POSTERIOR LLE -Combined with other wound No -Current Size (cm) - Length 6.2 -Current Size (cm) - Width 1.5 -Current Size (cm) - Depth 0.1 -Total Square Cm 9.30 -Photo Taken No -Epithelialization Medium 34-66% -Tunneling No -Undermining/Tunneling No -Circular Undermining No -Exudate Amt Small (1-33%) -Exudate Type Serosanguineous -Wound Margin Flat & Intact -Granulation Amt Medium (34-66%) -Granulation Quality [place] -Slough/Fibrin Yes -Necrosis Amt Medium (34-66%) -Necrotic Tissue Type Adherent Slough -Structure Exposed N/A -Texture (Lydia-wound Skin Appearance) Assessed Localized Edema Scarring -Moisture (Lydia-wound Skin Appearance Assessed ) Dry/Scaly -Color (Lydia-wound Skin Appearance) Assessed Hemosiderin Staining -Temperature (Lydia-wound Skin No Abnormality Appearance) (Pt Warm) -Tenderness on Palpation (Lydia-wound No Skin Appearance) -Ulcer Cleansing Wound Cleanser -Foul Odor after Cleansing No -Anesthetic Used 5% Lidocaine Gel [Edema Assessment] -Lower Limb Edema Present Yes -Right Calf (cm) 30.0 -Right Ankle (cm) 21.8 -Left Calf (cm) 31.7 -Left Ankle (cm) 26.5 WC - Nurse 2 - General Ulcer CM Notes Start: 04/08/18 08:56 Freq: Status: Active Protocol: Activity Type Activity Date Activity User E-Sign Co-Sign Detail Recorded Client Recorded Date Recorded By Document 04/08/18 09:08 VERNA [id number] 04/08/18 09:25 VERNA 04/08/18 09:08 Wound Center Nurse 2 [Procedure/Treatment] #5 L Lower Med Leg -Time 09:09 -Correct Patient Yes -Correct Side, Site, Position Yes -Correct Procedure Yes -Procedure Performed Yes -Type of Procedure Debridement -Clinical Debridement Subcutaneous -Post Debridement Size (cm) - Length 3.2 -Post Debridement Size (cm) - Width 2.0 -Post Debridement Size (cm) - Depth 0.2 -Total Square Cm 6.40 -Wound/Ulcer Outcome Not Healed -Ulcer Cleansing Rinsed/ Irrigated with Saline -Foul Odor after Cleansing No -Type of bioengineered Tissue [id number] -Expiration Date 11/14/19 -Product Lot Number [id number] -Percent Used 100 -Saline Lot Number [id number] -Topical Lidocaine (%) 5 -Bleeding Controlled with NA -Treatment Response Procedure Tolerated Well #2 POSTERIOR RLE- CALF -Time 09:18 #1 POSTERIOR LLE -Time 09:18 -Correct Patient Yes -Correct Side, Site, Position Yes -Correct Procedure Yes -Procedure Performed Yes -Type of Procedure Debridement -Clinical Debridement Subcutaneous -Post Debridement Size (cm) - Length 3.2 -Post Debridement Size (cm) - Width 2.0 -Post Debridement Size (cm) - Depth 0.2 -Total Square Cm 6.40 -Wound/Ulcer Outcome Not Healed -Ulcer Cleansing Rinsed/ Irrigated with Saline -Foul Odor after Cleansing No -Bioengineered Tissue Yes -Type of bioengineered Tissue [id number] -Expiration Date 11/14/19 -Product Lot Number [id number] -Percent Used 100 -Saline Lot Number [id number] -Topical Lidocaine (%) 5 -Bleeding Controlled with NA -Treatment Response Procedure Tolerated Well [See Physician Procedure note for Specifics] Pain Scale: 0-10 Numeric [Pain] -Is Patient Pain Free? Yes Musculoskeletal: No Muscle Wasting Neurological: Cranial nerves II-XII grossly intact Psych/Mental Status: Normal Affect Debridement Note Post-Debridement Measurements/Treatment WC - Nurse 2 - General Ulcer CM Notes Start: 04/08/18 08:56 Freq: Status: Active Protocol: Activity Type Activity Date Activity User E-Sign Co-Sign Detail Recorded Client Recorded Date Recorded By Document 04/08/18 09:08 [id number] 04/08/18 09:25 VERNA 04/08/18 09:08 Wound Center Nurse 2 #5 L Lower Med Leg -Time 09:09 -Correct Patient Yes -Correct Side, Site, Position Yes -Correct Procedure Yes -Procedure Performed Yes -Type of Procedure Debridement -Clinical Debridement Subcutaneous -Post Debridement Size (cm) - Length 3.2 -Post Debridement Size (cm) - Width 2.0 -Post Debridement Size (cm) - Depth 0.2 -Total Square Cm 6.40 -Wound/Ulcer Outcome Not Healed -Ulcer Cleansing Rinsed/ Irrigated with Saline -Foul Odor after Cleansing No -Type of bioengineered Tissue [id number] -Expiration Date 11/14/19 -Product Lot Number [id number] -Percent Used 100 -Saline Lot Number [id number] -Topical Lidocaine (%) 5 -Bleeding Controlled with NA -Treatment Response Procedure Tolerated Well #2 POSTERIOR RLE- CALF -Time 09:18 #1 POSTERIOR LLE -Time 09:18 -Correct Patient Yes -Correct Side, Site, Position Yes -Correct Procedure Yes -Procedure Performed Yes -Type of Procedure Debridement -Clinical Debridement Subcutaneous -Post Debridement Size (cm) - Length 3.2 -Post Debridement Size (cm) - Width 2.0 -Post Debridement Size (cm) - Depth 0.2 -Total Square Cm 6.40 -Wound/Ulcer Outcome Not Healed -Ulcer Cleansing Rinsed/ Irrigated with Saline -Foul Odor after Cleansing No -Bioengineered Tissue Yes -Type of bioengineered Tissue [id number] -Expiration Date 11/14/19 -Product Lot Number [id number] -Percent Used 100 -Saline Lot Number [id number] -Topical Lidocaine (%) 5 -Bleeding Controlled with NA -Treatment Response Procedure Tolerated Well Pain Scale: 0-10 Numeric Is Patient Pain Free? Yes Wound debrided: Left lower extremity calf ( Superior ) Wound Grade/Stage: Stage III Type of Debridement: Excisional debridement Anesthesia Used: 4% Lidocaine Solution Depth: Down to and including healthy tissue, in the subcutaneous layer Percentage of wound debrided: 100 Instrument Used: 5mm curette Tissue Removed: Slough and devitalized tissue Severity: Fat Layer Exposed Amount of bleeding with debridement: Mild Bleeding Controlled with: Pressure Patient tolerated procedure well - Additional Wound Wound debrided: Left lower extremity calf ( Inferior ) Wound Grade/Stage: Stage II Type of Debridement: Excisional debridement Anesthesia Used: 4% Lidocaine Solution Depth: Down to and including healthy tissue, in the subcutaneous layer Percentage of wound debrided: 100 Instrument Used: 5mm curette Tissue Removed: Slough and devitalized tissue Severity: Fat Layer Exposed Amount of bleeding with debridement: Mild Bleeding Controlled with: Pressure Patient tolerated procedure: Patient tolerated procedure well - Additional Wound Wound debrided: Left lower extremity calf ( Lateral Skin tear ) Wound Grade/Stage: Stage I Type of Debridement: Excisional debridement Anesthesia Used: 4% Lidocaine Solution Depth: Down to and including healthy tissue Percentage of wound debrided: 100 Instrument Used: 5mm curette Tissue Removed: DEvitalized tissue Severity: Limited To Skin Breakdown Amount of bleeding with debridement: Mild Bleeding Controlled with: Compression and gauze Patient tolerated procedure: Patient tolerated procedure well Assessment/Plan Assessment: Bilateral lower extremity ulcers with fat layer exposed. ( Right lower extremity healed ). Chronic venous insufficiency. Chronic bilateral non healing wound. Congestive heart failure. Debility. Plan: Improving old ulcers. Debridement done as documented above, procedure was well tolerated. 4th application of Purapply done today to both ulcers. Moistened with saline, covered with wound veil and secured with steristrips. Elevate lower extremity when sitted and in bed. 3M wraps for edema management. I believe patient may benefit from a skin substitute for continued wound healing. Continued increased protein intake and protein supplements recommeneded. Follow up in 1 week. This note was generated with [employer] dictation software. It may contain incorrect words, spelling, and punctuation that were not noted in checking the note before signing.
[2018-04-15 09:15] VITALS: BP 146/66; PULSE 73; RESP 16; TEMP 36.3
--- NOTE | 2018-04-15 10:29 | PCM.WC.PN ---
(1) Chronic venous insufficiency Status: Acute Current Visit: No Code(s): I87.2 - Venous insufficiency (chronic) (peripheral) (2) Non-healing ulcer Status: Acute Current Visit: No Code(s): L98.499 - Non-pressure chronic ulcer of skin of other sites with unspecified severity (3) Ulcer of right lower extremity with fat layer exposed Status: Acute Current Visit: No Code(s): L97.912 - Non-pressure chronic ulcer of unspecified part of right lower leg with fat layer exposed (4) Ulcer of left lower extremity with fat layer exposed Status: Acute Current Visit: No Code(s): L97.922 - Non-pressure chronic ulcer of unspecified part of left lower leg with fat layer exposed Type of Wound Date of Service: 04/15/18 Chief Complaint: Bilateral lower extremity ulcers. History of Wound: Mr. Diaz presents here with an at least 8 month history of bilateral lower extremity ulcers. He is here with his son and they are unsure of the exact onset but believe it must have been presnt for at least 8 months.They are also not sure of the precipitating factor. He lives with his who is largely incapapcitated and is helped by Home health. He has not had any significant care to his ulcers. He denies any known history of DM or PAD. He follows up with his PCP by whom he was referred here. He feels wells otherwise and denies chills, fever, significant discharge from the wound, nausea, vomiting or any change inhis bowel habit. Progress of Wound: Continued improvement of left posterior wound however, now presents with a new left lower extremity wound/ skin tear and a new right lower extremity wound from trauma. - Physical Exam Vital Signs Temp Pulse Resp BP 97.4 F L 73 16 146/66 H 04/15/18 09:15 04/15/18 09:15 04/15/18 09:15 04/15/18 09:15 General: Alert, Cooperative, No apparent distress HEENT: Atraumatic Oral: Moist Mucosa Neck: Supple Lungs: Normal air movement Abdomen: Non Tender Extremities: No cyanosis, Edema Skin: Ulcer/ Wound Wound Measurements and Assessment WC - Nurse 1 - General Ulcer Measurement Start: 04/08/18 08:56 Freq: Status: Active Protocol: Activity Type Activity Date Activity User E-Sign Co-Sign Detail Recorded Client Recorded Date Recorded By Document 04/15/18 09:15 ELEANOR [id number] 04/15/18 09:38 DL 04/15/18 09:15 Wound Center Nurse 1 [Ulcer Assessment] #6 R Nugent Cluster -Current Size (cm) - Length 5.5 -Current Size (cm) - Width 1.4 -Current Size (cm) - Depth 0.1 -Total Square Cm 7.70 -Photo Taken Yes -Exudate Amt Small (1-33%) -Exudate Type Serosanguineous -Wound Margin Distinct, Outline Attached -Granulation Amt Small (1-33%) -Granulation Quality Red -Necrosis Amt Small (1-33%) -Necrotic Tissue Type Adherent Slough -Structure Exposed N/A -Texture (Lydia-wound Skin Appearance) Scarring -Moisture (Lydia-wound Skin Appearance Dry/Scaly ) -Color (Lydia-wound Skin Appearance) Ecchymosis Hemosiderin Staining Rubor -Temperature (Lydia-wound Skin No Abnormality Appearance) (Pt Warm) -Ulcer Cleansing Wound Cleanser -Foul Odor after Cleansing No -Anesthetic Used 4% Lidocaine Solution #5 L Lower Med Leg -Current Size (cm) - Length 0 -Current Size (cm) - Width 0 -Current Size (cm) - Depth 0 -Total Square Cm 0 -Photo Taken Yes -Exudate Amt None Present (0 %) -Wound Margin Flat & Intact -Granulation Amt Large (67-100%) -Granulation Quality Pale [place] -Necrosis Amt None Present (0 %) -Structure Exposed N/A -Texture (Lydia-wound Skin Appearance) Scarring -Moisture (Lydia-wound Skin Appearance No Abnormality ) -Color (Lydia-wound Skin Appearance) Hemosiderin Staining -Temperature (Lydia-wound Skin No Abnormality Appearance) (Pt Warm) -Tenderness on Palpation (Lydia-wound No Skin Appearance) -Ulcer Cleansing Wound Cleanser -Foul Odor after Cleansing No #1 POSTERIOR LLE -Current Size (cm) - Length 5.7 -Current Size (cm) - Width 1.4 -Current Size (cm) - Depth 0.2 -Total Square Cm 7.98 -Photo Taken No -Exudate Amt Medium (34-66%) -Exudate Type Serosanguineous -Wound Margin Distinct, Outline Attached -Granulation Amt Small (1-33%) -Granulation Quality [place] Red -Necrosis Amt Large (67-100%) -Necrotic Tissue Type Adherent Slough -Structure Exposed N/A -Texture (Lydia-wound Skin Appearance) Scarring -Moisture (Lydia-wound Skin Appearance Dry/Scaly ) -Color (Lydia-wound Skin Appearance) Ecchymosis Hemosiderin Staining Rubor -Tenderness on Palpation (Lydia-wound No Skin Appearance) -Ulcer Cleansing Wound Cleanser -Foul Odor after Cleansing No -Anesthetic Used 4% Lidocaine Solution [Edema Assessment] -Right Calf (cm) 42.5 -Right Ankle (cm) 19.4 -Right Foot (cm) 25.5 -Left Calf (cm) 24 Musculoskeletal: No Muscle Wasting Neurological: Cranial nerves II-XII grossly intact Psych/Mental Status: Normal Affect Debridement Note Post-Debridement Measurements/Treatment WC - Nurse 2 - General Ulcer CM Notes Start: 04/08/18 08:56 Freq: Status: Active Protocol: Activity Type Activity Date Activity User E-Sign Co-Sign Detail Recorded Client Recorded Date Recorded By Document 04/08/18 09:08 [id number] 04/08/18 09:25 VERNA 04/08/18 09:08 Wound Center Nurse 2 #5 L Lower Med Leg -Time 09:09 -Correct Patient Yes -Correct Side, Site, Position Yes -Correct Procedure Yes -Procedure Performed Yes -Type of Procedure Debridement -Clinical Debridement Subcutaneous -Post Debridement Size (cm) - Length 1.0 -Post Debridement Size (cm) - Width 1.1 -Post Debridement Size (cm) - Depth 0.1 -Total Square Cm 1.10 -Wound/Ulcer Outcome Not Healed -Ulcer Cleansing Rinsed/ Irrigated with Saline -Foul Odor after Cleansing No -Type of bioengineered Tissue [id number] -Expiration Date 11/14/19 -Product Lot Number [id number] -Percent Used 100 -Saline Lot Number [id number] -Topical Lidocaine (%) 5 -Bleeding Controlled with NA -Treatment Response Procedure Tolerated Well #2 POSTERIOR RLE- CALF -Time 09:18 #1 POSTERIOR LLE -Time 09:18 -Correct Patient Yes -Correct Side, Site, Position Yes -Correct Procedure Yes -Procedure Performed Yes -Type of Procedure Debridement -Clinical Debridement Subcutaneous -Post Debridement Size (cm) - Length 3.2 -Post Debridement Size (cm) - Width 2.0 -Post Debridement Size (cm) - Depth 0.2 -Total Square Cm 6.40 -Wound/Ulcer Outcome Not Healed -Ulcer Cleansing Rinsed/ Irrigated with Saline -Foul Odor after Cleansing No -Bioengineered Tissue Yes -Type of bioengineered Tissue [id number] -Expiration Date 11/14/19 -Product Lot Number [id number] -Percent Used 100 -Saline Lot Number [id number] -Topical Lidocaine (%) 5 -Bleeding Controlled with NA -Treatment Response Procedure Tolerated Well Pain Scale: 0-10 Numeric Is Patient Pain Free? Yes Wound debrided: Left lower extremity posterior Wound Grade/Stage: Stage III Type of Debridement: Excisional debridement Anesthesia Used: 4% Lidocaine Solution Depth: Down to and including healthy tissue, in the subcutaneous layer Percentage of wound debrided: 100 Instrument Used: 5mm curette Tissue Removed: Slough and devitalized tissue Severity: Fat Layer Exposed Amount of bleeding with debridement: Mild Bleeding Controlled with: Pressure Patient tolerated procedure well - Additional Wound Wound debrided: Right nugent ( Cluster ) Wound Grade/Stage: Stage II Type of Debridement: Excisional debridement Anesthesia Used: 4% Lidocaine Solution Depth: Down to and including healthy tissue, in the subcutaneous layer Percentage of wound debrided: 100 Instrument Used: 5mm curette Tissue Removed: Slough and devitalized tissue Severity: Fat Layer Exposed Amount of bleeding with debridement: Mild Bleeding Controlled with: Pressure Assessment/Plan Assessment: Bilateral lower extremity ulcers with fat layer exposed. ( Right lower extremity healed ). Chronic venous insufficiency. Chronic bilateral non healing wound. Congestive heart failure. Debility. Plan: Improving old ulcers. New left and right lower extremity ulcers. Debridement done as documented above, procedure was well tolerated. 5th application of Purapply done today to all ulcers. Moistened with saline, covered with adaptic and guaze and secured with tape. He now has very good grnulation tissue and will benefit from a skin sub at this time. Possibly Apligraf. Elevate lower extremity when sitted and in bed. 3M wraps for edema management. Continued increased protein intake and protein supplements recommeneded. Follow up in 1 week. This note was generated with [email or web address] software. It may contain incorrect words, spelling, and punctuation that were not noted in checking the note before signing.
--- NOTE | 2018-04-15 10:34 | PN.PCM_ITS ---
(1) Chronic venous insufficiency Status: Acute Current Visit: No Code(s): I87.2 - Venous insufficiency ( chronic) (peripheral) (2) Non-healing ulcer Status: Acute Current Visit: No Code(s): L98.499 - Non-pressure chronic ulcer of skin of other sites with unspecified severity (3) Ulcer of right lower extremity with fat layer exposed Status: Acute Current Visit: No Code(s): L97.912 - Non-pressure chronic ulcer of unspecified part of right lower leg with fat layer exposed (4) Ulcer of left lower extremity with fat layer exposed Status: Acute Current Visit: No Code(s): L97.922 - Non-pressure chronic ulcer of unspecified part of left lower leg with fat layer exposed Type of Wound Date of Service: 04/15/18 Chief Complaint: Bilateral lower extremity ulcers. History of Wound: Mr. Diaz presents here with an at least 8 month history of bilateral lower extremity ulcers. He is here with his son and they are unsure of the exact onset but believe it must have been presnt for at least 8 months.They are also not sure of the precipitating factor. He lives with his who is largely incapapcitated and is helped by Home health. He has not had any significant care to his ulcers. He denies any known history of DM or PAD. He follows up with his PCP by whom he was referred here. He feels wells otherwise and denies chills, fever, significant discharge from the wound, nausea , vomiting or any change inhis bowel habit. Progress of Wound: Continued improvement of left posterior wound however, now presents with a new left lower extremity wound/ skin tear and a new right lower extremity wound from trauma. - Physical Exam Vital Signs Temp Pulse Resp BP 97.4 F L 73 16 146/66 H 04/15/18 09:15 04/15/18 09:15 04/15/18 09:15 04/15/18 09:15 General: Alert, Cooperative, No apparent distress HEENT: Atraumatic Oral: Moist Mucosa Neck: Supple Lungs: Normal air movement Abdomen: Non Tender Extremities: No cyanosis, Edema Skin: Ulcer/ Wound Wound Measurements and Assessment WC - Nurse 1 - General Ulcer Measurement Start: 04/08/18 08:56 Freq: Status: Active Protocol: Activity Type Activity Date Activity User E-Sign Co-Sign Detail Recorded Client Recorded Date Recorded By Document 04/15/18 09:15 ELEANOR [id number] 04/15/18 09:38 DL 04/15/18 09:15 Wound Center Nurse 1 [Ulcer Assessment] #6 R Nugent Cluster -Current Size (cm) - Length 5.5 -Current Size (cm) - Width 1.4 -Current Size (cm) - Depth 0.1 -Total Square Cm 7.70 -Photo Taken Yes -Exudate Amt Small (1-33%) -Exudate Type Serosanguineous -Wound Margin Distinct, Outline Attached -Granulation Amt Small (1-33%) -Granulation Quality Red -Necrosis Amt Small (1-33%) -Necrotic Tissue Type Adherent Slough -Structure Exposed N/A -Texture (Lydia-wound Skin Appearance) Scarring -Moisture (Lydia-wound Skin Appearance Dry/Scaly ) -Color (Lydia-wound Skin Appearance) Ecchymosis Hemosiderin Staining Rubor -Temperature (Lydia-wound Skin No Abnormality Appearance) (Pt Warm) -Ulcer Cleansing Wound Cleanser -Foul Odor after Cleansing No -Anesthetic Used 4% Lidocaine Solution #5 L Lower Med Leg -Current Size (cm) - Length 0 -Current Size (cm) - Width 0 -Current Size (cm) - Depth 0 -Total Square Cm 0 -Photo Taken Yes -Exudate Amt None Present (0 %) -Wound Margin Flat & Intact -Granulation Amt Large (67-100%) -Granulation Quality Pale [place] -Necrosis Amt None Present (0 %) -Structure Exposed N/A -Texture (Lydia-wound Skin Appearance) Scarring -Moisture (Lydia-wound Skin Appearance No Abnormality ) -Color (Lydia-wound Skin Appearance) Hemosiderin Staining -Temperature (Lydia-wound Skin No Abnormality Appearance) (Pt Warm) -Tenderness on Palpation (Lydia-wound No Skin Appearance) -Ulcer Cleansing Wound Cleanser -Foul Odor after Cleansing No #1 POSTERIOR LLE -Current Size (cm) - Length 5.7 -Current Size (cm) - Width 1.4 -Current Size (cm) - Depth 0.2 -Total Square Cm 7.98 -Photo Taken No -Exudate Amt Medium (34-66%) -Exudate Type Serosanguineous -Wound Margin Distinct, Outline Attached -Granulation Amt Small (1-33%) -Granulation Quality [place] Red -Necrosis Amt Large (67-100%) -Necrotic Tissue Type Adherent Slough -Structure Exposed N/A -Texture (Lydia-wound Skin Appearance) Scarring -Moisture (Lydia-wound Skin Appearance Dry/Scaly ) -Color (Lydia-wound Skin Appearance) Ecchymosis Hemosiderin Staining Rubor -Tenderness on Palpation (Lydia-wound No Skin Appearance) -Ulcer Cleansing Wound Cleanser -Foul Odor after Cleansing No -Anesthetic Used 4% Lidocaine Solution [Edema Assessment] -Right Calf (cm) 42.5 -Right Ankle (cm) 19.4 -Right Foot (cm) 25.5 -Left Calf (cm) 24 Musculoskeletal: No Muscle Wasting Neurological: Cranial nerves II-XII grossly intact Psych/Mental Status: Normal Affect Debridement Note Post-Debridement Measurements/Treatment WC - Nurse 2 - General Ulcer CM Notes Start: 04/08/18 08:56 Freq: Status: Active Protocol: Activity Type Activity Date Activity User E-Sign Co-Sign Detail Recorded Client Recorded Date Recorded By Document 04/08/18 09:08 [id number] 04/08/18 09:25 VERNA 04/08/18 09:08 Wound Center Nurse 2 #5 L Lower Med Leg -Time 09:09 -Correct Patient Yes -Correct Side, Site, Position Yes -Correct Procedure Yes -Procedure Performed Yes -Type of Procedure Debridement -Clinical Debridement Subcutaneous -Post Debridement Size (cm) - Length 1.0 -Post Debridement Size (cm) - Width 1.1 -Post Debridement Size (cm) - Depth 0.1 -Total Square Cm 1.10 -Wound/Ulcer Outcome Not Healed -Ulcer Cleansing Rinsed/ Irrigated with Saline -Foul Odor after Cleansing No -Type of bioengineered Tissue [id number] -Expiration Date 11/14/19 -Product Lot Number [id number] -Percent Used 100 -Saline Lot Number [id number] -Topical Lidocaine (%) 5 -Bleeding Controlled with NA -Treatment Response Procedure Tolerated Well #2 POSTERIOR RLE- CALF -Time 09:18 #1 POSTERIOR LLE -Time 09:18 -Correct Patient Yes -Correct Side, Site, Position Yes -Correct Procedure Yes -Procedure Performed Yes -Type of Procedure Debridement -Clinical Debridement Subcutaneous -Post Debridement Size (cm) - Length 3.2 -Post Debridement Size (cm) - Width 2.0 -Post Debridement Size (cm) - Depth 0.2 -Total Square Cm 6.40 -Wound/Ulcer Outcome Not Healed -Ulcer Cleansing Rinsed/ Irrigated with Saline -Foul Odor after Cleansing No -Bioengineered Tissue Yes -Type of bioengineered Tissue [id number] -Expiration Date 11/14/19 -Product Lot Number [id number] -Percent Used 100 -Saline Lot Number [id number] -Topical Lidocaine (%) 5 -Bleeding Controlled with NA -Treatment Response Procedure Tolerated Well Pain Scale: 0-10 Numeric Is Patient Pain Free? Yes Wound debrided: Left lower extremity posterior Wound Grade/Stage: Stage III Type of Debridement: Excisional debridement Anesthesia Used: 4% Lidocaine Solution Depth: Down to and including healthy tissue, in the subcutaneous layer Percentage of wound debrided: 100 Instrument Used: 5mm curette Tissue Removed: Slough and devitalized tissue Severity: Fat Layer Exposed Amount of bleeding with debridement: Mild Bleeding Controlled with: Pressure Patient tolerated procedure well - Additional Wound Wound debrided: Right nugent ( Cluster ) Wound Grade/Stage: Stage II Type of Debridement: Excisional debridement Anesthesia Used: 4% Lidocaine Solution Depth: Down to and including healthy tissue, in the subcutaneous layer Percentage of wound debrided: 100 Instrument Used: 5mm curette Tissue Removed: Slough and devitalized tissue Severity: Fat Layer Exposed Amount of bleeding with debridement: Mild Bleeding Controlled with: Pressure Assessment/Plan Assessment: Bilateral lower extremity ulcers with fat layer exposed. ( Right lower extremity healed ). Chronic venous insufficiency. Chronic bilateral non healing wound. Congestive heart failure. Debility. Plan: Improving old ulcers. New left and right lower extremity ulcers. Debridement done as documented above, procedure was well tolerated. 5th application of Purapply done today to all ulcers. Moistened with saline, covered with adaptic and guaze and secured with tape. He now has very good grnulation tissue and will benefit from a skin sub at this time. Possibly Apligraf. Elevate lower extremity when sitted and in bed. 3M wraps for edema management. Continued increased protein intake and protein supplements recommeneded. Follow up in 1 week. This note was generated with [employer] software. It may contain incorrect words, spelling, and punctuation that were not noted in checking the note before signing.
[2018-04-22 09:33] VITALS: BP 154/88; PULSE 70; RESP 18; TEMP 36.2
--- NOTE | 2018-04-22 11:01 | PN.PCM_ITS ---
(1) Chronic venous insufficiency Status: Acute Current Visit: Yes Code(s): I87.2 - Venous insufficiency ( chronic) (peripheral) (2) Non-healing ulcer Status: Acute Current Visit: Yes Code(s): L98.499 - Non-pressure chronic ulcer of skin of other sites with unspecified severity (3) Ulcer of right lower extremity with fat layer exposed Status: Acute Current Visit: Yes Code(s): L97.912 - Non-pressure chronic ulcer of unspecified part of right lower leg with fat layer exposed (4) Ulcer of left lower extremity with fat layer exposed Status: Acute Current Visit: Yes Code(s): L97.922 - Non-pressure chronic ulcer of unspecified part of left lower leg with fat layer exposed Type of Wound Date of Service: 04/22/18 Chief Complaint: Bilateral lower extremity ulcers. History of Wound: Mr. Diaz presents here with an at least 8 month history of bilateral lower extremity ulcers. He is here with his son and they are unsure of the exact onset but believe it must have been presnt for at least 8 months.They are also not sure of the precipitating factor. He lives with his who is largely incapapcitated and is helped by Home health. He has not had any significant care to his ulcers. He denies any known history of DM or PAD. He follows up with his PCP by whom he was referred here. He feels wells otherwise and denies chills, fever, significant discharge from the wound, nausea , vomiting or any change inhis bowel habit. Progress of Wound: Improving. No new complaints. - Physical Exam Vital Signs Temp Pulse Resp BP 97.1 F L 70 18 154/88 H 04/22/18 09:33 04/22/18 09:33 04/22/18 09:33 04/22/18 09:33 General: Alert, Oriented x3, Cooperative, No apparent distress HEENT: Atraumatic Oral: Moist Mucosa Neck: Supple Lungs: Normal air movement Extremities: No edema, Edema Skin: Ulcer/ Wound Wound Measurements and Assessment WC - Nurse 1 - General Ulcer Measurement Start: 04/08/18 08:56 Freq: Status: Active Protocol: Activity Type Activity Date Activity User E-Sign Co-Sign Detail Recorded Client Recorded Date Recorded By Document 04/22/18 09:33 [facility] [id number] 04/22/18 09:55 BMF 04/22/18 09:33 Wound Center Nurse 1 [Ulcer Assessment] #7- LT KNEE -Combined with other wound No -Current Size (cm) - Length 1.3 -Current Size (cm) - Width 1 -Current Size (cm) - Depth 0.1 -Total Square Cm 1.3 -Date of Last Picture (Recall this 04/22/18 field) -Photo Taken Yes -Epithelialization None Present -Tunneling No -Undermining/Tunneling No -Circular Undermining No -Exudate Amt Small (1-33%) -Exudate Type Serosanguineous -Wound Margin Distinct, Outline Attached -Granulation Amt Medium (34-66%) -Granulation Quality Red -Slough/Fibrin Yes -Necrosis Amt Small (1-33%) -Necrotic Tissue Type Adherent Slough -Structure Exposed None/Limited to Skin Breakdown -Texture (Lydia-wound Skin Appearance) Assessed -Moisture (Lydia-wound Skin Appearance Dry/Scaly ) -Color (Lydia-wound Skin Appearance) Erythema -Temperature (Lydia-wound Skin No Abnormality Appearance) (Pt Warm) -Tenderness on Palpation (Lydia-wound No Skin Appearance) -Ulcer Cleansing Wound Cleanser -Foul Odor after Cleansing No -Anesthetic Used 4% Lidocaine Solution #6 R Krishnan Cluster -Combined with other wound No -Current Size (cm) - Length 8.6 -Current Size (cm) - Width 1.7 -Current Size (cm) - Depth 0.1 -Total Square Cm 14.62 -Photo Taken No -Epithelialization Small 1-33% -Tunneling No -Undermining/Tunneling No -Circular Undermining No -Exudate Amt Small (1-33%) -Exudate Type Serosanguineous -Wound Margin Distinct, Outline Attached -Granulation Amt Small (1-33%) -Granulation Quality Red -Slough/Fibrin Yes -Necrosis Amt Large (67-100%) -Necrotic Tissue Type Eschar -Texture (Lydia-wound Skin Appearance) Scarring -Color (Lydia-wound Skin Appearance) Erythema Hemosiderin Staining -Temperature (Lydia-wound Skin No Abnormality Appearance) (Pt Warm) -Tenderness on Palpation (Yldia-wound No Skin Appearance) -Ulcer Cleansing Wound Cleanser -Foul Odor after Cleansing No -Anesthetic Used 5% Lidocaine Gel #1 POSTERIOR LLE -Combined with other wound No -Current Size (cm) - Length 5.5 -Current Size (cm) - Width 3.8 -Current Size (cm) - Depth 0.1 -Total Square Cm 20.90 -Photo Taken No -Epithelialization Small 1-33% -Tunneling No -Undermining/Tunneling No -Circular Undermining No -Exudate Amt Medium (34-66%) -Exudate Type Serosanguineous -Wound Margin Distinct, Outline Attached -Granulation Amt Medium (34-66%) -Granulation Quality Red -Slough/Fibrin Yes -Necrosis Amt Medium (34-66%) -Necrotic Tissue Type Adherent Slough -Texture (Lydia-wound Skin Appearance) Scarring -Moisture (Lydia-wound Skin Appearance Dry/Scaly ) -Color (Lydia-wound Skin Appearance) Erythema Hemosiderin Staining -Temperature (Lydia-wound Skin No Abnormality Appearance) (Pt Warm) -Tenderness on Palpation (Lydia-wound No Skin Appearance) -Ulcer Cleansing Wound Cleanser -Foul Odor after Cleansing No -Anesthetic Used 4% Lidocaine Solution [Edema Assessment] -Lower Limb Edema Present Yes -Right Calf (cm) 32.1 -Right Ankle (cm) 19.7 -Left Calf (cm) 31.5 -Point of Measurement (cm from the 23.4 medial instep) WC - Nurse 2 - General Ulcer CM Notes Start: 04/08/18 08:56 Freq: Status: Active Protocol: Activity Type Activity Date Activity User E-Sign Co-Sign Detail Recorded Client Recorded Date Recorded By Document 04/22/18 10:23 [id number] 04/22/18 10:28 04/22/18 10:23 Wound Center Nurse 2 [Procedure/Treatment] #7- LT KNEE -Time 10:23 -Correct Patient Yes -Correct Side, Site, Position Yes -Correct Procedure Yes -Procedure Performed Yes -Type of Procedure Debridement -Clinical Debridement Subcutaneous -Post Debridement Size (cm) - Length 1.4 -Post Debridement Size (cm) - Width 1.1 -Post Debridement Size (cm) - Depth 0.1 -Total Square Cm 1.54 -Wound/Ulcer Outcome Not Healed -Ulcer Cleansing Rinsed/ Irrigated with Saline -Foul Odor after Cleansing No -Bioengineered Tissue Yes -Type of bioengineered Tissue Apligraf -Expiration Date 04/30/18 -Product Lot Number [id number] -Percent Used 33 -Saline Lot Number [id number] -Topical Lidocaine (%) 5 -Bleeding Controlled with Pressure -Treatment Response Procedure Tolerated Well #6 R Krishnan Cluster -Time 10:25 -Correct Patient Yes -Correct Side, Site, Position Yes -Correct Procedure Yes -Procedure Performed Yes -Type of Procedure Debridement -Clinical Debridement Subcutaneous -Post Debridement Size (cm) - Length 8.7 -Post Debridement Size (cm) - Width 1.8 -Post Debridement Size (cm) - Depth 0.1 -Total Square Cm 15.66 -Wound/Ulcer Outcome Not Healed -Ulcer Cleansing Rinsed/ Irrigated with Saline -Foul Odor after Cleansing No -Bioengineered Tissue Yes -Type of bioengineered Tissue Apligraf -Expiration Date 04/30/18 -Product Lot Number [id number] -Percent Used 33 -Saline Lot Number [id number] -Topical Lidocaine (%) 5 -Bleeding Controlled with Pressure -Treatment Response Procedure Tolerated Well #1 POSTERIOR LLE -Time 10:26 -Correct Patient Yes -Correct Side, Site, Position Yes -Correct Procedure Yes -Procedure Performed Yes -Type of Procedure Debridement -Clinical Debridement Subcutaneous -Post Debridement Size (cm) - Length 5.5 -Post Debridement Size (cm) - Width 1.0 -Post Debridement Size (cm) - Depth 0.1 -Total Square Cm 5.50 -Wound/Ulcer Outcome Not Healed -Ulcer Cleansing Rinsed/ Irrigated with Saline -Foul Odor after Cleansing No -Bioengineered Tissue Yes -Type of bioengineered Tissue Apligraf -Expiration Date 04/30/18 -Product Lot Number [id number] -Percent Used 33 -Saline Lot Number [id number] -Topical Lidocaine (%) 5 -Bleeding Controlled with Pressure -Treatment Response Procedure Tolerated Well [See Physician Procedure note for Specifics] Pain Scale: 0-10 Numeric [Pain] -Is Patient Pain Free? Yes Musculoskeletal: No Muscle Wasting Neurological: Cranial nerves II-XII grossly intact Psych/Mental Status: Normal Affect Debridement Note Post-Debridement Measurements/Treatment WC - Nurse 2 - General Ulcer CM Notes Start: 04/08/18 08:56 Freq: Status: Active Protocol: Activity Type Activity Date Activity User E-Sign Co-Sign Detail Recorded Client Recorded Date Recorded By Document 04/08/18 09:08 [id number] 04/08/18 09:25 JS Document 04/22/18 10:23 [id number] 04/22/18 10:28 04/08/18 04/22/18 09:08 10:23 Wound Center Nurse 2 #7- LT KNEE -Time 10:23 -Correct Patient Yes -Correct Side, Site, Position Yes -Correct Procedure Yes -Procedure Performed Yes -Type of Procedure Debridement -Clinical Debridement Subcutaneous -Post Debridement Size (cm) - Length 1.4 -Post Debridement Size (cm) - Width 1.1 -Post Debridement Size (cm) - Depth 0.1 -Total Square Cm 1.54 -Wound/Ulcer Outcome Not Healed -Ulcer Cleansing Rinsed/ Irrigated with Saline -Foul Odor after Cleansing No -Bioengineered Tissue Yes -Type of bioengineered Tissue Apligraf -Expiration Date 04/30/18 -Product Lot Number [id number] -Percent Used 33 -Saline Lot Number [id number] -Topical Lidocaine (%) 5 -Bleeding Controlled with Pressure -Treatment Response Procedure Tolerated Well #6 R Krishnan Cluster -Time 10:25 -Correct Patient Yes -Correct Side, Site, Position Yes -Correct Procedure Yes -Procedure Performed Yes -Type of Procedure Debridement -Clinical Debridement Subcutaneous -Post Debridement Size (cm) - Length 8.7 -Post Debridement Size (cm) - Width 1.8 -Post Debridement Size (cm) - Depth 0.1 -Total Square Cm 15.66 -Wound/Ulcer Outcome Not Healed -Ulcer Cleansing Rinsed/ Irrigated with Saline -Foul Odor after Cleansing No -Bioengineered Tissue Yes -Type of bioengineered Tissue Apligraf -Expiration Date 04/30/18 -Product Lot Number [id number] -Percent Used 33 -Saline Lot Number [id number] -Topical Lidocaine (%) 5 -Bleeding Controlled with Pressure -Treatment Response Procedure Tolerated Well #5 L Lower Med Leg -Time 09:09 -Correct Patient Yes -Correct Side, Site, Position Yes -Correct Procedure Yes -Procedure Performed Yes -Type of Procedure Debridement -Clinical Debridement Subcutaneous -Post Debridement Size (cm) - Length 1.0 -Post Debridement Size (cm) - Width 1.1 -Post Debridement Size (cm) - Depth 0.1 -Total Square Cm 1.10 -Wound/Ulcer Outcome Not Healed -Ulcer Cleansing Rinsed/ Irrigated with Saline -Foul Odor after Cleansing No -Type of bioengineered Tissue [id number] -Expiration Date 11/14/19 -Product Lot Number [id number] -Percent Used 100 -Saline Lot Number [id number] -Topical Lidocaine (%) 5 -Bleeding Controlled with NA -Treatment Response Procedure Tolerated Well #2 POSTERIOR RLE- CALF -Time 09:18 #1 POSTERIOR LLE -Time 09:18 10:26 -Correct Patient Yes Yes -Correct Side, Site, Position Yes Yes -Correct Procedure Yes Yes -Procedure Performed Yes Yes -Type of Procedure Debridement Debridement -Clinical Debridement Subcutaneous Subcutaneous -Post Debridement Size (cm) - Length 3.2 5.5 -Post Debridement Size (cm) - Width 2.0 1.0 -Post Debridement Size (cm) - Depth 0.2 0.1 -Total Square Cm 6.40 5.50 -Wound/Ulcer Outcome Not Healed Not Healed -Ulcer Cleansing Rinsed/ Rinsed/ Irrigated with Irrigated with Saline Saline -Foul Odor after Cleansing No No -Bioengineered Tissue Yes Yes -Type of bioengineered Tissue [id number] Apligraf -Expiration Date 11/14/19 04/30/18 -Product Lot Number [id number] -Percent Used 100 33 -Saline Lot Number [id number] -Topical Lidocaine (%) 5 5 -Bleeding Controlled with NA Pressure -Treatment Response Procedure Procedure Tolerated Well Tolerated Well Pain Scale: 0-10 Numeric Is Patient Pain Free? Yes Yes Wound debrided: Left lower extremity posterior Wound Grade/Stage: Stage III Type of Debridement: Excisional debridement Anesthesia Used: 4% Lidocaine Solution Depth: Down to and including healthy tissue, in the subcutaneous layer Percentage of wound debrided: 100 Instrument Used: 5mm curette Tissue Removed: Slough and devitalized tissue Severity: Fat Layer Exposed Amount of bleeding with debridement: Mild Bleeding Controlled with: Pressure Patient tolerated procedure well - Additional Wound Wound debrided: Left anterior lower extremity (knee) Wound Grade/Stage: Stage I Type of Debridement: Excisional debridement Anesthesia Used: 4% Lidocaine Solution Depth: Down to and including healthy tissue, in the subcutaneous layer Percentage of wound debrided: 100 Instrument Used: 5mm curette Tissue Removed: Slough and devitalized tissue Severity: Fat Layer Exposed Bleeding Controlled with: Pressure Patient tolerated procedure: Patient tolerated procedure well - Additional Wound Wound debrided: Right lower extremity cluster Wound Grade/Stage: Stage II Anesthesia Used: 4% Lidocaine Solution Depth: Down to and including healthy tissue, in the subcutaneous layer Percentage of wound debrided: 100 Instrument Used: 5mm curette Tissue Removed: Slough and devitalized tissue Severity: Fat Layer Exposed Amount of bleeding with debridement: Mild Bleeding Controlled with: Pressure Patient tolerated procedure: Patient tolerated procedure well Assessment/Plan Active Problems Ulcer of left lower extremity with fat layer exposed (Acute) Ulcer of right lower extremity with fat layer exposed (Acute) Chronic venous insufficiency (Acute) Non-healing ulcer (Acute) Assessment: Bilateral lower extremity ulcers with fat layer exposed. ( Right lower extremity healed ). Chronic venous insufficiency. Chronic bilateral non healing wound. Congestive heart failure. Debility. Plan: Stable ulcers. Debridement done as documented above, procedure was well tolerated. First application of Apligraf done today to all ulcers. Procedure was well-tolerated. Leave in place for 1 week. Continue 3M wraps for edema management. Elevate lower extremity when sitted and in bed. Continued increased protein intake and protein supplements recommeneded. Follow up in 1 week. Advised to call with any questions or concerns. This note was generated with [email or web address] dictation software. It may contain incorrect words, spelling, and punctuation that were not noted in checking the note before signing.
[2018-04-29 11:41] VITALS: BP 151/83; PULSE 67; RESP 20; TEMP 35.9
--- NOTE | 2018-04-29 13:03 | PN.PCM_ITS ---
(1) Chronic venous insufficiency Status: Acute Current Visit: Yes Code(s): I87.2 - Venous insufficiency ( chronic) (peripheral) (2) Non-healing ulcer Status: Acute Current Visit: Yes Code(s): L98.499 - Non-pressure chronic ulcer of skin of other sites with unspecified severity (3) Ulcer of right lower extremity with fat layer exposed Status: Acute Current Visit: Yes Code(s): L97.912 - Non-pressure chronic ulcer of unspecified part of right lower leg with fat layer exposed (4) Ulcer of left lower extremity with fat layer exposed Status: Acute Current Visit: Yes Code(s): L97.922 - Non-pressure chronic ulcer of unspecified part of left lower leg with fat layer exposed Type of Wound Date of Service: 04/29/18 Chief Complaint: Bilateral lower extremity ulcers. History of Wound: Mr. Diaz presents here with an at least 8 month history of bilateral lower extremity ulcers. He is here with his son and they are unsure of the exact onset but believe it must have been presnt for at least 8 months.They are also not sure of the precipitating factor. He lives with his who is largely incapapcitated and is helped by Home health. He has not had any significant care to his ulcers. He denies any known history of DM or PAD. He follows up with his PCP by whom he was referred here. He feels wells otherwise and denies chills, fever, significant discharge from the wound, nausea , vomiting or any change inhis bowel habit. Progress of Wound: Improving. No new complaints. - Physical Exam Vital Signs Temp Pulse Resp BP 96.7 F L 67 20 H 151/83 H 04/29/18 11:41 04/29/18 11:41 04/29/18 11:41 04/29/18 11:41 General: Alert, Oriented x3, Cooperative, No apparent distress HEENT: Atraumatic Oral: Moist Mucosa Neck: Supple Lungs: Normal air movement Abdomen: Non Tender Extremities: No cyanosis Skin: Ulcer/ Wound Wound Measurements and Assessment WC - Nurse 1 - General Ulcer Measurement Start: 04/08/18 08:56 Freq: Status: Active Protocol: Activity Type Activity Date Activity User E-Sign Co-Sign Detail Recorded Client Recorded Date Recorded By Document 04/29/18 11:41 DL [id number] 04/29/18 11:52 DL 04/29/18 11:41 Wound Center Nurse 1 [Ulcer Assessment] #7- LT KNEE -Photo Taken No -Texture (Lydia-wound Skin Appearance) No Abnormality -Moisture (Lydia-wound Skin Appearance No Abnormality ) -Color (Lydia-wound Skin Appearance) Hemosiderin Staining -Temperature (Lydia-wound Skin No Abnormality Appearance) (Pt Warm) -Ulcer Cleansing Wound Cleanser -Foul Odor after Cleansing No #6 R Krishnan Cluster -Photo Taken No -Texture (Lydia-wound Skin Appearance) No Abnormality -Moisture (Lydia-wound Skin Appearance No Abnormality ) -Color (Lydia-wound Skin Appearance) Hemosiderin Staining -Temperature (Lydia-wound Skin No Abnormality Appearance) (Pt Warm) -Tenderness on Palpation (Lydia-wound No Skin Appearance) -Ulcer Cleansing Wound Cleanser -Foul Odor after Cleansing No #1 POSTERIOR LLE -Photo Taken No -Texture (Lydia-wound Skin Appearance) No Abnormality -Moisture (Lydia-wound Skin Appearance No Abnormality ) -Color (Lydia-wound Skin Appearance) Hemosiderin Staining -Temperature (Lydia-wound Skin No Abnormality Appearance) (Pt Warm) -Tenderness on Palpation (Lydia-wound No Skin Appearance) -Ulcer Cleansing Wound Cleanser -Foul Odor after Cleansing No [Edema Assessment] -Right Calf (cm) 27.2 -Right Ankle (cm) 19.3 -Left Calf (cm) 28.3 -Left Ankle (cm) 22 WC - Nurse 2 - General Ulcer CM Notes Start: 04/08/18 08:56 Freq: Status: Active Protocol: Activity Type Activity Date Activity User E-Sign Co-Sign Detail Recorded Client Recorded Date Recorded By Document 04/29/18 12:37 [id number] 04/29/18 12:40 04/29/18 12:37 Wound Center Nurse 2 [Procedure/Treatment] #7- LT KNEE -Time 12:38 -Correct Patient Yes -Correct Side, Site, Position Yes -Correct Procedure Yes -Procedure Performed Yes -Post Debridement Size (cm) - Length 0.1 -Post Debridement Size (cm) - Width 0.1 -Post Debridement Size (cm) - Depth 0.1 -Total Square Cm 0.01 -Wound/Ulcer Outcome Not Healed -Foul Odor after Cleansing No -Bioengineered Tissue No -Bleeding Controlled with NA -Other apligraf intact no debridement -Treatment Response Procedure Tolerated Well #6 R Krishnan Cluster -Time 12:38 -Correct Patient Yes -Correct Side, Site, Position Yes -Correct Procedure Yes -Procedure Performed Yes -Post Debridement Size (cm) - Length 0.1 -Post Debridement Size (cm) - Width 0.1 -Post Debridement Size (cm) - Depth 0.1 -Total Square Cm 0.01 -Wound/Ulcer Outcome Not Healed -Ulcer Cleansing Rinsed/ Irrigated with Saline -Foul Odor after Cleansing No -Bioengineered Tissue No -Bleeding Controlled with NA -Other apligraf intact no debridement -Treatment Response Procedure Tolerated Well #1 POSTERIOR LLE -Time 12:39 -Correct Patient Yes -Correct Side, Site, Position Yes -Correct Procedure Yes -Procedure Performed Yes -Post Debridement Size (cm) - Length 0.1 -Post Debridement Size (cm) - Width 0.1 -Post Debridement Size (cm) - Depth 0.1 -Total Square Cm 0.01 -Wound/Ulcer Outcome Not Healed -Ulcer Cleansing Rinsed/ Irrigated with Saline -Foul Odor after Cleansing No -Bioengineered Tissue No -Bleeding Controlled with NA -Other apligraf intact no debridement -Treatment Response Procedure Tolerated Well [See Physician Procedure note for Specifics] Pain Scale: 0-10 Numeric [Pain] -Is Patient Pain Free? Yes Musculoskeletal: No Muscle Wasting Neurological: Cranial nerves II-XII grossly intact Psych/Mental Status: Normal Affect Debridement Note Post-Debridement Measurements/Treatment WC - Nurse 2 - General Ulcer CM Notes Start: 04/08/18 08:56 Freq: Status: Active Protocol: Activity Type Activity Date Activity User E-Sign Co-Sign Detail Recorded Client Recorded Date Recorded By Document 04/08/18 09:08 JS [id number] 04/08/18 09:25 JS Document 04/22/18 10:23 TM [id number] 04/22/18 10:28 TM Document 04/29/18 12:37 TM [id number] 04/29/18 12:40 TM 04/08/18 04/22/18 04/29/18 09:08 10:23 12:37 Wound Center Nurse 2 #7- LT KNEE -Time 10:23 12:38 -Correct Patient Yes Yes -Correct Side, Site, Position Yes Yes -Correct Procedure Yes Yes -Procedure Performed Yes Yes -Type of Procedure Debridement -Clinical Debridement Subcutaneous -Post Debridement Size (cm) - Length 1.4 0.1 -Post Debridement Size (cm) - Width 1.1 0.1 -Post Debridement Size (cm) - Depth 0.1 0.1 -Total Square Cm 1.54 0.01 -Wound/Ulcer Outcome Not Healed Not Healed -Ulcer Cleansing Rinsed/ Irrigated with Saline -Foul Odor after Cleansing No No -Bioengineered Tissue Yes No -Type of bioengineered Tissue Apligraf -Expiration Date 04/30/18 -Product Lot Number [id number] -Percent Used 33 -Saline Lot Number [id number] -Topical Lidocaine (%) 5 -Bleeding Controlled with Pressure NA -Other apligraf intact no debridement -Treatment Response Procedure Procedure Tolerated Well Tolerated Well #6 R Krishnan Cluster -Time 10:25 12:38 -Correct Patient Yes Yes -Correct Side, Site, Position Yes Yes -Correct Procedure Yes Yes -Procedure Performed Yes Yes -Type of Procedure Debridement -Clinical Debridement Subcutaneous -Post Debridement Size (cm) - Length 8.7 0.1 -Post Debridement Size (cm) - Width 1.8 0.1 -Post Debridement Size (cm) - Depth 0.1 0.1 -Total Square Cm 15.66 0.01 -Wound/Ulcer Outcome Not Healed Not Healed -Ulcer Cleansing Rinsed/ Rinsed/ Irrigated with Irrigated with Saline Saline -Foul Odor after Cleansing No No -Bioengineered Tissue Yes No -Type of bioengineered Tissue Apligraf -Expiration Date 04/30/18 -Product Lot Number [id number] -Percent Used 33 -Saline Lot Number [id number] -Topical Lidocaine (%) 5 -Bleeding Controlled with Pressure NA -Other apligraf intact no debridement -Treatment Response Procedure Procedure Tolerated Well Tolerated Well #5 L Lower Med Leg -Time 09:09 -Correct Patient Yes -Correct Side, Site, Position Yes -Correct Procedure Yes -Procedure Performed Yes -Type of Procedure Debridement -Clinical Debridement Subcutaneous -Post Debridement Size (cm) - Length 1.0 -Post Debridement Size (cm) - Width 1.1 -Post Debridement Size (cm) - Depth 0.1 -Total Square Cm 1.10 -Wound/Ulcer Outcome Not Healed -Ulcer Cleansing Rinsed/ Irrigated with Saline -Foul Odor after Cleansing No -Type of bioengineered Tissue [id number] -Expiration Date 11/14/19 -Product Lot Number [id number] -Percent Used 100 -Saline Lot Number [id number] -Topical Lidocaine (%) 5 -Bleeding Controlled with NA -Treatment Response Procedure Tolerated Well #2 POSTERIOR RLE- CALF -Time 09:18 #1 POSTERIOR LLE -Time 09:18 10:26 12:39 -Correct Patient Yes Yes Yes -Correct Side, Site, Position Yes Yes Yes -Correct Procedure Yes Yes Yes -Procedure Performed Yes Yes Yes -Type of Procedure Debridement Debridement -Clinical Debridement Subcutaneous Subcutaneous -Post Debridement Size (cm) - Length 3.2 5.5 0.1 -Post Debridement Size (cm) - Width 2.0 1.0 0.1 -Post Debridement Size (cm) - Depth 0.2 0.1 0.1 -Total Square Cm 6.40 5.50 0.01 -Wound/Ulcer Outcome Not Healed Not Healed Not Healed -Ulcer Cleansing Rinsed/ Rinsed/ Rinsed/ Irrigated with Irrigated with Irrigated with Saline Saline Saline -Foul Odor after Cleansing No No No -Bioengineered Tissue Yes Yes No -Type of bioengineered Tissue [id number] Apligraf -Expiration Date 11/14/19 04/30/18 -Product Lot Number [id number] -Percent Used 100 33 -Saline Lot Number [id number] -Topical Lidocaine (%) 5 5 -Bleeding Controlled with NA Pressure NA -Other apligraf intact no debridement -Treatment Response Procedure Procedure Procedure Tolerated Well Tolerated Well Tolerated Well Pain Scale: 0-10 Numeric Is Patient Pain Free? Yes Yes Yes No debridement was completed today Assessment/Plan Active Problems Ulcer of left lower extremity with fat layer exposed (Acute) Ulcer of right lower extremity with fat layer exposed (Acute) Chronic venous insufficiency (Acute) Non-healing ulcer (Acute) Assessment: Bilateral lower extremity ulcers with fat layer exposed. ( Right lower extremity healed ). Chronic venous insufficiency. Chronic bilateral non healing wound. Congestive heart failure. Debility. Plan: Stable ulcers. No debridement done today. Dressing appear intact. Continue 3M wraps for edema management. Elevate lower extremity when sitted and in bed. Continued increased protein intake and protein supplements recommended. Follow up in 1 week. Advised to call with any questions or concerns. This note was generated with [employer] software. It may contain incorrect words, spelling, and punctuation that were not noted in checking the note before signing.
== END 2018-05-04 23:59 ==
LOC: WC 11:00
PROVIDERS: Family Provider Family Medicine; PCP Family Medicine; Visit Provider Internal Medicine
DX: L97.222 Non-pressure chronic ulcer of left calf with fat layer exposed (principal); L97.212 Non-pressure chronic ulcer of right calf with fat layer exposed; L97.822 Non-pressure chronic ulcer of other part of left lower leg with fat layer exposed; L97.812 Non-pressure chronic ulcer of other part of right lower leg with fat layer exposed; I87.2 Venous insufficiency (chronic) (peripheral); I50.9 Heart failure, unspecified; R53.81 Other malaise
CPT/HCPCS: 11042; 15271; 15272; 29581; 99214; Q4101; Q4172; G0463